=== PATIENT | male | born 1980 | race Caucasian/White ===

== ENCOUNTER 2019-09-15 18:55 | Emergency (ER) | payer OTHER, MEDICAID, SELFPAY ==
--- NOTE | 2019-09-15 20:36 | PC.NURSE ---
Late entry: @ 191 I was called out to registration. Jade informed me that a patient was upset and had left the department stating I'll just call 911 you people are just trying to keep me out. pt had left department. @ 1920 I was outside of the triage room in the registration area and patient returned, appearing very angry. I told him I would triage him in a moment, he went to leave and I told him that in order to be triaged I needed him in the department when I called him. He then turned toward me, pointed at me and yelled It's all on you. I stepped forward as there was a patient with me and he started to walk away and then stopped, took a step toward me and pointed at me yelling I'm going to fucking kill you. He appeared very threatening and I felt safety was at risk. He then turned and left the ER to outside. [employer] was called, statement given. Pt trespassed.
== END 2019-09-15 19:30 | disposition left against medical advice (07) ==
PROVIDERS: Emergency Provider Emergency Medicine

== ENCOUNTER → 2020-02-09 14:12 | Outpatient (CLI) | payer OTHER, MEDICAID, SELFPAY ==
--- NOTE | 2020-02-09 14:16 | DI.RAD.S_ITS ---
PROCEDURE: XR LUMBAR SPINE MIN 4V INDICATIONS: LBP x years with radiation BLE. Please include oblique views TECHNIQUE: 5 views of the lumbar spine were acquired. COMPARISON: Lumbar spine radiograph dated 02/15/16. FINDINGS: Bones: No fracture or focal osseous destruction. Straightening of the normal lordotic curvature. Multilevel degenerative endplate sclerosis and spurring. Diffuse facet arthropathy. Mild diffuse narrowing of the lumbar disc spaces. Soft tissues: Overlying bowel gas pattern is normal. No suspicious soft tissue calcifications. Oblique images: No pars defects. IMPRESSION: Mild multilevel lumbar spondylosis and facet arthropathy. No interval change. Dictated by: Valdez Zaragoza M.D. on 02/09/2020 at 15:52 Approved by: Valdez Zaragoza M.D. on 02/09/2020 at 15:54
--- NOTE | 2020-02-09 14:16 | DI.RAD.S_ITS ---
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 COMPARISON: None. FINDINGS: Bones: No fractures or dislocations. No suspicious bony lesions. Prominent spur seen at the posterior calcaneus. Mild 1st MTP joint degeneration. Soft tissues: No tibiotalar joint effusion. Achilles tendon appears normal. IMPRESSION: Prominent posterior calcaneal spur Dictated by: Valdez Zaragoza M.D. on 02/09/2020 at 15:55 Approved by: Valdez Zaragoza M.D. on 02/09/2020 at 15:57
--- NOTE | 2020-02-09 14:16 | DI.RAD.S_ITS ---
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 COMPARISON: None. FINDINGS: Bones: No fractures or dislocations. Ankle mortise is normally aligned. No suspicious bony lesions. Prominent posterior calcaneal spurring. No tibiotalar joint effusion. Achilles tendon appears normal. IMPRESSION: Prominent posterior calcaneal spur. Dictated by: Valdez Zaragoza M.D. on 02/09/2020 at 15:57 Approved by: Valdez Zaragoza M.D. on 02/09/2020 at 16:01
== END ==
PROVIDERS: Referring Provider Registered Nurse Diabetes Educator; Visit Provider Registered Nurse Diabetes Educator
DX: M54.5 Low back pain (principal); M47.816 Spondylosis without myelopathy or radiculopathy, lumbar region; M92.60 Juvenile osteochondrosis of tarsus, unspecified ankle; M77.31 Calcaneal spur, right foot
CPT/HCPCS: 72110; 73610; 73630

== ENCOUNTER → 2020-11-19 06:40 | Outpatient (CLI) | payer OTHER, MEDICAID, SELFPAY ==
--- NOTE | 2020-11-19 | DI.MRI.S_ITS ---
PROCEDURE: MR LUMBAR SPINE WO CON INDICATIONS: Worsening chronic low back pain/radiculopathy TECHNIQUE: Noncontrast sagittal T1 spin echo and T2 fast echo, sagittal STIR, axial T1 and T2 fast spin echo through the lumbar spine. In cases with scoliosis, additional coronal T2 fast spin echo may be performed. COMPARISON: [facility], CR, XR LUMBAR SPINE MIN 4V, 02/09/2020, 14:09. FINDINGS: Image quality: Excellent. Alignment and Curvature: 5 lumbar type vertebral bodies are present by plain film. There is loss of normal lumbar lordosis. Mild grade 1 retrolisthesis of L5 on S1. Bone Marrow: Marrow is of normal overall signal. No acute vertebral body compression fractures. Minimal reactive signal within the endplates adjacent to the L2-L3, L3-L4, L4-L5, and L5-S1 intervertebral discs. Spinal Cord: Conus medullaris terminates at the lower L1 level. Visualized cord demonstrates normal signal and size. Paraspinous Soft Tissues: No paravertebral masses. T12-L1: Normal appearance. L1-L2: Normal appearance. L2-L3: Mild disc height loss and desiccation. No significant canal, or foraminal stenosis. L3-L4: Mild disc height loss and desiccation. Mild diffuse disc bulge. Mild canal stenosis. No significant foraminal stenosis. L4-L5: Moderate disc height loss and desiccation. Mild diffuse disc bulge with superimposed central protrusion. Mild facet and ligamentum flavum hypertrophy. Mild canal stenosis. Mild bilateral foraminal stenosis. L5-S1: Moderate disc height loss and desiccation. Mild diffuse disc bulge with superimposed broad-based left posterolateral protrusion. Mild bilateral facet hypertrophy. Mild canal stenosis. Moderate left and mild right subarticular foraminal stenosis. Mild posterior deviation of the left S1 nerve root within the lateral recess. IMPRESSION: 1. Multilevel degenerative disc and facet disease, as well as ligamentum flavum hypertrophy and epidural lipomatosis. 2. Mild multilevel canal stenosis. 3. Multilevel foraminal stenosis, worst at L5-S1 on the left where there is moderate foraminal stenosis. 4. Mild posterior deviation of the left S1 nerve root at the L5-S1 disc space level. Recommend correlation with clinical symptoms to ascertain relevance of this finding. Dictated by: Lavelle Romero M.D. on 11/19/2020 at 11:00 Approved by: Lavelle Romero M.D. on 11/19/2020 at 11:02
== END ==
PROVIDERS: Referring Provider Nurse Practitioner Family; Visit Provider Nurse Practitioner Family
DX: M51.16 Intervertebral disc disorders with radiculopathy, lumbar region (principal); M51.17 Intervertebral disc disorders with radiculopathy, lumbosacral region; M48.061 Spinal stenosis, lumbar region without neurogenic claudication; M48.07 Spinal stenosis, lumbosacral region; E88.2 Lipomatosis, not elsewhere classified
CPT/HCPCS: 72148

== ENCOUNTER 2023-06-30 14:30 | Outpatient (RCR) | payer OTHER, MEDICAID, SELFPAY ==
--- NOTE | 2023-05-27 16:43 | PT.OIE ---
Current Diagnoses Radiculopathy, lumbar region (05/27/23) Past Medical History (Last Reviewed 02/08/20 @ 06:42 by KULWINDER Noriega) Rodrigo's deformity Low back pain Visit Care Team Role Provider Type KULWINDER Salazar Attending Provider Non-Staff Family Provider Primary Care Provider Referring Provider Specialty: Nursing Address: [facility], [address], [place], [address] Email: Physical Therapy Initial Evaluation PT-OP-A Visit Information Start: 05/27/23 15:22 Freq: Status: Active Protocol: Document 05/27/23 15:23 NM (Rec: 05/27/23 16:43 NM [id number]) Out-Patient Physical Therapy Visit Information Visit Information Visit Type Initial Evaluation Visit Start Time 14:30 Visit Stop Time 15:15 Total Visit Minutes 45 Evaluation Information Evaluation Date 05/27/23 PT-OP-B Current Condition Start: 05/27/23 15:22 Freq: Status: Active Protocol: Document 05/27/23 15:23 NM (Rec: 05/27/23 16:43 NM [id number]) Current Condition History of Current Condition Current Complaints low back and B leg pain, weakness, activity intolerance History of Current Condition Pt presents to clinic with chronic low back pain with radiation into BLE, RLE is worse than LLE. Pt reports that his back pain started in his 20's with a football injury to the spine, but the condition worsened about 5 years ago without any known WANDA. His symptoms are primarily burning in the low back and aching in his legs; he also has frequent numbness and tingling in both feet, R>L . Symptoms include B numbness and tingling, back pain, weakness, and decreased activity tolerance. 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 He has had instances where he feels like his legs give out on him. Pt also states that is R leg is shorter than his L leg, so he feels lopsided which he thinks affects his low back pain, too. Pt recently began using an inversion table, which is giving him significant relief. He is currently experiencing difficulty with bending, lifting >50#, sitting <15 min, walking extended distances, and standing for > 1 hr. Prior Treatments and Tests Pt had prior PT about 5 years ago for the same condition, which he said was helpful. He is hopeful that this round of PT will be successful as well. 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 Treatment Goals Patient/Caregiver Goals To decrease back pain Prior Functional Status Baseline Function- ADL's Independent Baseline Function- Mobility Independent Current Functional Impairments (Reported) Functional Limitations- ADL's difficulty with sitting, standing for extended periods of time Functional Limitations- Mobility/Gait Difficulty with walking extended distances (more than a grocery shopping trip) Functional Limitations- Work/School Difficulty bending, lifting for work, and positioning himself underneath the cars Personal Factors Other Personal Factors That May Effect He has a busy work schedule Therapy/Recovery and can only make 1 session/wk PT-OP-C Subjective Start: 05/27/23 15:22 Freq: Status: Active Protocol: Document 05/27/23 15:23 NM (Rec: 05/27/23 16:43 NM [id number]) Patient Questionnaires Oswestry Low Back Index Oswestry Score 19/50 Oswestry Impairment 1 to 19% Impaired (Score 1-19) OP-PT Pain Assessment Location Hips Pain Location Details R>L, located on the lateral portion of the hip Intensity 6 Scale Used Numeric (0 - 10) Description Aching,Chronic Frequency Frequent Pain Aggravating Factors Position,Exercise,Standing, Sitting,Walking,Bending, Lifting,Coughing Other Pain Alleviating Factors Inversion table + back brace Lumbar Spine Pain Location Details near L4-S1 Intensity 6 Scale Used Numeric (0 - 10) Description Burning,Chronic,Radiating,With Movement Frequency Constant Pain Duration lasts hours Radiating Location to BLE, RLE is more effected than LLE. Radiates to the R hip, B feet (R>L) Pain Aggravating Factors Position,Activity,Standing, Sitting,Walking,Bending, Lifting,Coughing Pain Alleviating Factors Medication,Lying Supine, Elevation Other Pain Alleviating Factors Inversion table followed by a back brace for support Home Pain Medication Use Pain Medications Used Yes Home Pain Medication Frequency Frequent use of ibuprofen Pain Behaviors Pain Behaviors Guarding,Restlessness PT-OP-D Balance Start: 05/27/23 15:22 Freq: Status: Active Protocol: Document 05/27/23 15:23 NM (Rec: 05/27/23 16:43 NM [id number]) OP-PT Balance Assessment Sitting Balance Static Sitting Balance Ability Normal Dynamic Sitting Balance Ability Normal Standing Balance Static Standing Balance Ability Fair Dynamic Standing Balance Ability Fair Hawthorne Fall Scale Copyright Permission PT-OP-F Manual Assessment Start: 05/27/23 15:22 Freq: Status: Active Protocol: Document 05/27/23 15:23 NM (Rec: 05/27/23 16:43 NM [id number]) Manual Assessments Soft Tissue Assessment Soft Tissue Mobility Assessment Exhibits muscle guarding along lumbar paraspinals. Some soft tissue tightness and tenderness along the spinous processes near L4-S1 Joint Mobility Assessment Joint Mobility Assessment PA spring testing reveals hypomobility at L4-L5 spinous processes; pt reports symptom decrease with springing. PIVM flexion and sidebending performed, exhibits hypomobility of spinous processes ~L4-L5. B hip joint motion not provocatie except during B hip IR PT-OP-G Mobility & Gait Start: 05/27/23 15:22 Freq: Status: Active Protocol: Document 05/27/23 15:23 NM (Rec: 05/27/23 16:43 NM [id number]) OP Gait Assessment Gait Gait Assistance Required: Independent Distance (Feet) 500 Gait Deviations General Gait Pattern Antalgic,Flexed Trunk Factors Limiting Gait Function Factors Limiting Gait Function Decreased Activity Tolerance, Limited Range of Motion,Pain PT-OP-H Neuro Start: 05/27/23 15:22 Freq: Status: Active Protocol: Document 05/27/23 15:23 NM (Rec: 05/27/23 16:43 NM [id number]) Sensation Evaluation Gross Sensation Gross Sensation Left LE Impaired,Right LE Impaired,Trunk Impaired Sensation Description Paresthesia,Numbness,Tingling, Burning Dermatome Impairments T10,T11,T12,L1,L2,L3,L4,L5,S1 Location Details Left Lower Extremity Light Touch Impaired Right Lower Extremity Light Touch Impaired Comments Summary Comments Decreased sensation to light touch in BLE, R>L, primarily along dermatomes L3-L5 PT-OP-J Posture/Palpation/Skin Start: 05/27/23 15:22 Freq: Status: Active Protocol: Document 05/27/23 15:23 NM (Rec: 05/27/23 16:43 NM [id number]) Posture Evaluation Position Standing Evaluation View all 3 Head/C-Spine Posture Flexed L-Spine Posture Neutral Shoulder Posture (L) Rounded,(R) Rounded Pelvis Posture Anteriorly Tilted Hip Posture (L) Externally Rotated,(R) Externally Rotated PT-OP-K Range of Motion Start: 05/27/23 15:22 Freq: Status: Active Protocol: Document 05/27/23 15:23 NM (Rec: 05/27/23 16:43 NM [id number]) Lumbar Spine Range of Motion Lumbar Spine Active Degrees Testing Position Standing Flexion 50 Extension 20 Rotation Left 3 Rotation Right 3 Lateral Flexion Left 10 Lateral Flexion Right 10 ROM Limitations Pain Comments Limited by pain during all motions, ext> flex. Lateral flexion in each direction is most provocative. Hip Goniometric Range of Motion Hip Left Comments Did not get to take measurements during eval due to time constraints. Will assess next session. Pt did demo decreased hip IR (greater ROM than R hip), which also provoked low back symptoms. LLE length: 86 cm (ASIS to medial malleolus) Right Comments Did not get to take measurements during eval due to time constraints. Will assess next session. Pt did demo decreased hip IR, which also provoked low back symptoms. RLE length: 84 cm (ASIS to medial malleolus) PT-OP-L Special Tests Start: 05/27/23 15:22 Freq: Status: Active Protocol: Document 05/27/23 15:23 NM (Rec: 05/27/23 16:43 NM [id number]) Special Tests Lumbar Spine Special Tests Slump Test Results negative Comments no changes in symptoms but does report a stretching feeling in hamstrings Compression Test Results positive bilaterally Comments Ext/SB/Rot provoked symptoms when performed on ea side PT-OP-M Strength Start: 05/27/23 15:22 Freq: Status: Active Protocol: Document 05/27/23 15:23 NM (Rec: 05/27/23 16:43 NM [id number]) Trunk Strength Trunk Manual Muscle Testing Testing Position supine, standing, prone Flexion 4+ Good+ Rotation Left 4+ Good+ Rotation Right 4+ Good+ Lateral Flexion Left 4+ Good+ Lateral Flexion Right 4+ Good+ Comments Extension is provocative of symptoms, therefore plank not tested. Hip Strength Hip Manual Muscle Testing Left Flexion (L2) 4+ Good+ Extension (S1) 4 Good Abduction 4+ Good+ External Rotation 4+ Good+ Internal Rotation 4+ Good+ Comments No pain Right Flexion (L2) 4+ Good+ Extension (S1) 4 Good Abduction 4 Good External Rotation 4+ Good+ Internal Rotation 4+ Good+ Comments No pain PT-OP-Q Treatments Start: 05/27/23 15:22 Freq: Status: Active Protocol: Document 05/27/23 15:23 NM (Rec: 05/27/23 16:43 NM [id number]) Therapeutic Exercises Supine Exercises 90/90 Spinal Decompression Supine Exercise Name HEP Side bilateral Equipment Used bolster under knees Reps/Minutes 5' Comments pt reports relief of symptoms PT-OP-T Assessment and Plan Start: 05/27/23 15:22 Freq: Status: Active Protocol: Document 05/27/23 15:23 NM (Rec: 05/27/23 16:43 NM [id number]) Physical Therapy Assessment Rehab Potential Rehabilitation Potential Good Evaluation Complexity Number of Personal Factors/Comorbidities 3 or More Number of Body Systems Impaired 1-2 Clinical Presentation at Evaluation Stable Impairments Impairments Activity Tolerance,Balance, Functional Activities, Functional Mobility,Gait,Pain, Posture,ROM,Sensation,Soft Tissue Mobility,Strength Goals Four Impairment function, pain Impairment Pt reports he is unable to squat due to pain and symptom provocation Short Term Goal (STG) Pt will be able to squat at least 5 times with low back pain of 4/10 or less without compensations in order to demonstrate improved activity tolerance, symptom management, and ROM. STG Duration 4 weeks Tattoo Technician Goal (LTG) Pt will be able to squat for at least 30 seconds with low back pain of 4/10 or less without compensations in order to demonstrate improved activity tolerance, symptom management, and ROM. LTG Duration 8 weeks Three Impairment function, pain Impairment Oswestry score: 19/50 Short Term Goal (STG) Pt will improve Oswestry score by at least 4 points in order to demonstrate improved activity tolerance and pain management strategies. STG Duration 4 weeks Tattoo Technician Goal (LTG) Pt will improve Oswestry score by at least 9 points (MCID) in order to demonstrates improved activity tolerance, pain management strategies, and quality of life. LTG Duration 8 weeks Two Impairment strength Impairment Pt unable to perform a standard or modified plank due to pain during back extension Short Term Goal (STG) Pt will be able to perform at least a modified plank for at least 15 seconds in order to demonstrate improved core strength, extension ROM, and activity tolerance. STG Duration 4 weeks Tattoo Technician Goal (LTG) Pt will be able to perform at least a modified plank for at least 45 seconds in order to demonstrate improved core strength, extension ROM, and activity tolerance. LTG Duration 8 weeks One Impairment ROM Impairment Lateral flexion (10 deg B) and extension (20deg) ROM limited Short Term Goal (STG) Pt will improve trunk lateral flexion and extension ROM by at least 5 degrees in order to show improved motion. STG Duration 4 weeks Longterm Goal (LTG) Pt will improve lateral flexion and extension ROM by at least 5 degrees with pain of 2 or less in order to show improvements in motion, activity tolerance, and pain management. LTG Duration 8 weeks Assessment Summary Assessment Pt is a 42 y.o. male presenting to the clinic with chronic low back pain with B radicular symptoms down to the feet, RLE > LLE. He has a hx of low back pain but no known mechanism of injury. Symptoms are primarily a burning low back pain, numbness and tingling in B feet, and an aching feeling in BLE. Pt is symptomatic with extended standing and walking, during bending and lifting >50#, and squatting. Pt presents with limitations in trunk ROM ( especially lateral flexion and extension) and is symptomatic during flexion and extension, and combined motions. Hip motion is largely asymptomatic with the exception of hip IR, but will assess actual ROM in next session due to time constraints; hip strength is good overall with some hip abduction weakness. Trunk strength is good but pt would benefit from core strengthening and education regarding core activation for spine protection during lifting. Tests involving spinal compression and neural tension provoke symptoms, and the symptoms are reduced with spinal decompression. HEP provided: supine 90/90 hip/ knees using a bolster to unload spine. Pt does have decreased sensation to light touch in the L3-L5 dermatomes. Pt is also concerned about a possible leg length discrepancy that may impact his low back pain. Upon measurement, RLE is 2 cm less than the LLE; discussed the possibility of a future referral for foot orthotics. Impairments include decreased hip and core strength, gait disturbances, decreased sensation, decreased endurance , and decreased ability to participate in social and work activities. Pt is a good candidate for skilled PT to address the above impairments and to promote pt safety, reduce fall risk, improve activity tolerance, and quality of life. Physical Therapy Plan Frequency and Duration Frequency of Treatment 1x/Week Duration of treatment (weeks) 8 Plan of Care Start Date 05/27/23 Plan of Care End Date 07/22/23 Therapeutic Interventions Therapeutic Interventions Balance Training,Gait Training ,Home Exercise Program,Joint Mobilizations,Manual Therapy, Neuromuscular Re-education, Orthotic/Prosthetic Management ,Patient/Caregiver Education, Sensory Integration,Soft Tissue Mobilization, Therapeutic Activities, Therapeutic Exercises Modalities Biofeedback,Cold Pack/Ice Massage,Electric Stimulation, Hot Packs,Iontophoresis, Traction- Mechanical, Ultrasound Other Therapeutic Interventions Manual traction of lumbar spine and hips Other Referrals/Consults Referrals/Consults Recommended Discussed possibility of custom orthotics with pt regarding potential leg length discrepancy. Depending on pt progress and preference, will refer to appropriate provider. Next Visit Focus/Plan Next Note Type Treatment Note Next Visit Plan Core strengthening, flexion- based spinal activities, manual traction, spinal decompression
--- NOTE | 2023-06-04 11:23 | PT.OTN ---
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 Pt reports that his back pain started in his 20's with a football injury to the spine, but the condition worsened about 5 years ago without any known WANDA. His symptoms are primarily burning in the low back and aching in his legs; he also has frequent numbness and tingling in both feet, R>L . Symptoms include B numbness and tingling, back pain, weakness, and decreased activity tolerance. 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 He has had instances where he feels like his legs give out on him. Pt also states that is R leg is shorter than his L leg, so he feels lopsided which he thinks affects his low back pain, too. Pt recently began using an inversion table, which is giving him significant relief. He is currently experiencing difficulty with bending, lifting >50#, sitting <15 min, walking extended distances, and standing for > 1 hr. Prior Treatments and Tests Pt had prior PT about 5 years ago for the same condition, which he said was helpful. He is hopeful that this round of PT will be successful as well. 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 Treatment Goals Patient/Caregiver Goals To decrease back pain Prior Functional Status Baseline Function- ADL's Independent Baseline Function- Mobility Independent Current Functional Impairments (Reported) Functional Limitations- ADL's difficulty with sitting, standing for extended periods of time Functional Limitations- Mobility/Gait Difficulty with walking extended distances (more than a grocery shopping trip) Functional Limitations- Work/School Difficulty bending, lifting for work, and positioning himself underneath the cars Personal Factors Other Personal Factors That May Effect He has a busy work schedule Therapy/Recovery and can only make 1 session/wk PT-OP-C Subjective Start: 05/27/23 15:22 Freq: Status: Active Protocol: Document 06/04/23 10:35 SP (Rec: 06/04/23 11:41 SP [id number]) OP-PT Subjective Patient Comments Patient Comments Pt reports R LB today and into B LEs. States inversion table has been really helping decompress hips and LS discs all way to upper back almost 3 /4 decline and tries to relax and breath. He reports PT-OP-D Balance Start: 05/27/23 15:22 Freq: Status: Active Protocol: Document 05/27/23 15:23 NM (Rec: 05/27/23 16:43 NM [id number]) OP-PT Balance Assessment Sitting Balance Static Sitting Balance Ability Normal Dynamic Sitting Balance Ability Normal Standing Balance Static Standing Balance Ability Fair Dynamic Standing Balance Ability Fair Hawthorne Fall Scale Copyright Permission PT-OP-F Manual Assessment Start: 05/27/23 15:22 Freq: Status: Active Protocol: Document 05/27/23 15:23 NM (Rec: 05/27/23 16:43 NM [id number]) Manual Assessments Soft Tissue Assessment Soft Tissue Mobility Assessment Exhibits muscle guarding along lumbar paraspinals. Some soft tissue tightness and tenderness along the spinous processes near L4-S1 Joint Mobility Assessment Joint Mobility Assessment PA spring testing reveals hypomobility at L4-L5 spinous processes; pt reports symptom decrease with springing. PIVM flexion and sidebending performed, exhibits hypomobility of spinous processes ~L4-L5. B hip joint motion not provocatie except during B hip IR PT-OP-G Mobility & Gait Start: 05/27/23 15:22 Freq: Status: Active Protocol: Document 05/27/23 15:23 NM (Rec: 05/27/23 16:43 NM [id number]) OP Gait Assessment Gait Gait Assistance Required: Independent Distance (Feet) 500 Gait Deviations General Gait Pattern Antalgic,Flexed Trunk Factors Limiting Gait Function Factors Limiting Gait Function Decreased Activity Tolerance, Limited Range of Motion,Pain PT-OP-H Neuro Start: 05/27/23 15:22 Freq: Status: Active Protocol: Document 05/27/23 15:23 NM (Rec: 05/27/23 16:43 NM [id number]) Sensation Evaluation Gross Sensation Gross Sensation Left LE Impaired,Right LE Impaired,Trunk Impaired Sensation Description Paresthesia,Numbness,Tingling, Burning Dermatome Impairments T10,T11,T12,L1,L2,L3,L4,L5,S1 Location Details Left Lower Extremity Light Touch Impaired Right Lower Extremity Light Touch Impaired Comments Summary Comments Decreased sensation to light touch in BLE, R>L, primarily along dermatomes L3-L5 PT-OP-J Posture/Palpation/Skin Start: 05/27/23 15:22 Freq: Status: Active Protocol: Document 05/27/23 15:23 NM (Rec: 05/27/23 16:43 NM [id number]) Posture Evaluation Position Standing Evaluation View all 3 Head/C-Spine Posture Flexed L-Spine Posture Neutral Shoulder Posture (L) Rounded,(R) Rounded Pelvis Posture Anteriorly Tilted Hip Posture (L) Externally Rotated,(R) Externally Rotated PT-OP-K Range of Motion Start: 05/27/23 15:22 Freq: Status: Active Protocol: Document 05/27/23 15:23 NM (Rec: 05/27/23 16:43 NM [id number]) Lumbar Spine Range of Motion Lumbar Spine Active Degrees Testing Position Standing Flexion 50 Extension 20 Rotation Left 3 Rotation Right 3 Lateral Flexion Left 10 Lateral Flexion Right 10 ROM Limitations Pain Comments Limited by pain during all motions, ext> flex. Lateral flexion in each direction is most provocative. Hip Goniometric Range of Motion Hip Left Comments Did not get to take measurements during eval due to time constraints. Will assess next session. Pt did demo decreased hip IR (greater ROM than R hip), which also provoked low back symptoms. LLE length: 86 cm (ASIS to medial malleolus) Right Comments Did not get to take measurements during eval due to time constraints. Will assess next session. Pt did demo decreased hip IR, which also provoked low back symptoms. RLE length: 84 cm (ASIS to medial malleolus) PT-OP-L Special Tests Start: 05/27/23 15:22 Freq: Status: Active Protocol: Document 05/27/23 15:23 NM (Rec: 05/27/23 16:43 NM [id number]) Special Tests Lumbar Spine Special Tests Slump Test Results negative Comments no changes in symptoms but does report a stretching feeling in hamstrings Compression Test Results positive bilaterally Comments Ext/SB/Rot provoked symptoms when performed on ea side PT-OP-M Strength Start: 05/27/23 15:22 Freq: Status: Active Protocol: Document 05/27/23 15:23 NM (Rec: 05/27/23 16:43 NM [id number]) Trunk Strength Trunk Manual Muscle Testing Testing Position supine, standing, prone Flexion 4+ Good+ Rotation Left 4+ Good+ Rotation Right 4+ Good+ Lateral Flexion Left 4+ Good+ Lateral Flexion Right 4+ Good+ Comments Extension is provocative of symptoms, therefore plank not tested. Hip Strength Hip Manual Muscle Testing Left Flexion (L2) 4+ Good+ Extension (S1) 4 Good Abduction 4+ Good+ External Rotation 4+ Good+ Internal Rotation 4+ Good+ Comments No pain Right Flexion (L2) 4+ Good+ Extension (S1) 4 Good Abduction 4 Good External Rotation 4+ Good+ Internal Rotation 4+ Good+ Comments No pain PT-OP-Q Treatments Start: 05/27/23 15:22 Freq: Status: Active Protocol: Document 06/04/23 10:35 SP (Rec: 06/04/23 11:41 SP [id number]) Therapeutic Exercises Supine Exercises TA training Supine Exercise Name draw in, PPT little stronger Comments Mod cues and tactile LS feedback- 30-50% pre LE HEP added Fig 4 Comments pain SI R- hold 06/04 stretches Supine Exercise Name added to HEP: piriformis (hip ER) Side bilateral Equipment Used foot over opp bent knee Reps/Minutes 30SH Comments good feedback post hip stretch front hips ok LTR Supine Exercise Name in PT Resistance AROM Equipment Used 65cm tball Reps/Minutes x5 reps Comments cued slow, initial R anterior hip pinch to R LTR but then fine segmental bridge Supine Exercise Name added to HEP: sacrum & 1 vertebra time lift/lower Resistance AROM Reps/Minutes x5 reps Comments initial wobbly pelvis, improves with reps knee fall out Supine Exercise Name added to HEP: individual LE Side bilateral Reps/Minutes 3 reps each side then alternating 3 sets Comments Mod/Max vcs, slow pacing active TA maintain- opp LE stationary 90/90 Spinal Decompression Supine Exercise Name HEP Side bilateral Equipment Used over 65cm Tball Reps/Minutes 3 min Comments good hip stretch reported, cued breath Sitting Exercises Piriformis stretch Sitting Exercise Name added for seated at work Reps/Minutes 30 Comments cued hold foot over opp knee cradle toward opp shld painfree range- good st Other Exercises self STMs Other Exercise Name discussed gave HO: ES, glut Equipment Used ball wall self massage: tennis /racquetball Reps/Minutes 10-30 sec gentle beneficial massage Comments recheck next tx. Manual Therapy Treatment Soft Tissue Mobilization Hips Body Location B piriformis, glut med Mobilization Type Strumming,Sustained Pressure, Other Intensity/Depth mod Body Position prone over pilllows Comments manual and MWM hip IR/ ER AROM back Body Location B QL, ES, paraspinals Mobilization Type Rolling,Sustained Pressure, Other Intensity/Depth Moderate Body Position prone over pillows Comments manual STMs and MWM hip IR/ ER AROM Joint Mobilizations LS Joint L4-5 Direction PA Grade II Body Position Prone Reps/Duration x6 reps Comments with exhale- good feedback response, relaxing Self-Care/Home Management Treatment Education Other Education Ed balance flexibility, core support and upcoming appts 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 PT-OP-T Assessment and Plan Start: 05/27/23 15:22 Freq: Status: Active Protocol: Document 06/04/23 10:35 SP (Rec: 06/04/23 11:41 SP [id number]) Physical Therapy Assessment Goals Four Impairment function, pain Impairment Pt reports he is unable to squat due to pain and symptom provocation Short Term Goal (STG) Pt will be able to squat at least 5 times with low back pain of 4/10 or less without compensations in order to demonstrate improved activity tolerance, symptom management, and ROM. STG Duration 4 weeks Mcfp Goal (LTG) Pt will be able to squat for at least 30 seconds with low back pain of 4/10 or less without compensations in order to demonstrate improved activity tolerance, symptom management, and ROM. LTG Duration 8 weeks Three Impairment function, pain Impairment Oswestry score: 19/50 Short Term Goal (STG) Pt will improve Oswestry score by at least 4 points in order to demonstrate improved activity tolerance and pain management strategies. STG Duration 4 weeks Mcfp Goal (LTG) Pt will improve Oswestry score by at least 9 points (MCID) in order to demonstrates improved activity tolerance, pain management strategies, and quality of life. LTG Duration 8 weeks Two Impairment strength Impairment Pt unable to perform a standard or modified plank due to pain during back extension Short Term Goal (STG) Pt will be able to perform at least a modified plank for at least 15 seconds in order to demonstrate improved core strength, extension ROM, and activity tolerance. STG Duration 4 weeks Mcfp Goal (LTG) Pt will be able to perform at least a modified plank for at least 45 seconds in order to demonstrate improved core strength, extension ROM, and activity tolerance. LTG Duration 8 weeks One Impairment ROM Impairment Lateral flexion (10 deg B) and extension (20deg) ROM limited Short Term Goal (STG) Pt will improve trunk lateral flexion and extension ROM by at least 5 degrees in order to show improved motion. STG Duration 4 weeks Mcfp Goal (LTG) Pt will improve lateral flexion and extension ROM by at least 5 degrees with pain of 2 or less in order to show improvements in motion, activity tolerance, and pain management. LTG Duration 8 weeks Assessment Summary Assessment Pt good feedback response to manual, verbal understanding of self application ball wall. Max cues this tx, pt very sleepy, didn't sleep well last night had him count out loud, better core fac with reps bridge, KFO and tolerance stretching added to HEP. Physical Therapy Plan Frequency and Duration Frequency of Treatment 1x/Week Duration of treatment (weeks) 8 Plan of Care Start Date 05/27/23 Plan of Care End Date 07/22/23 Therapeutic Interventions Therapeutic Interventions Balance Training,Gait Training ,Home Exercise Program,Joint Mobilizations,Manual Therapy, Neuromuscular Re-education, Orthotic/Prosthetic Management ,Patient/Caregiver Education, Sensory Integration,Soft Tissue Mobilization, Therapeutic Activities, Therapeutic Exercises Modalities Biofeedback,Cold Pack/Ice Massage,Electric Stimulation, Hot Packs,Iontophoresis, Traction- Mechanical, Ultrasound Other Therapeutic Interventions Manual traction of lumbar spine and hips Other Referrals/Consults Referrals/Consults Recommended Discussed possibility of custom orthotics with pt regarding potential leg length discrepancy. Depending on pt progress and preference, will refer to appropriate provider. Next Visit Focus/Plan Next Note Type Treatment Note Next Visit Plan Check HEP, possible pelvic alignment. revisit self STMs if needed. Add LE sciatic neural glide. POC: Core strengthening, flexion-based spinal activities, manual traction, spinal decompression, future bird dog, bug, body mechanics work related, STS reach OH and squat.
--- NOTE | 2023-06-09 16:07 | PT.OTN ---
Current Diagnoses Radiculopathy, lumbar region (06/09/23) Physical Therapy Treatment Note PT-OP-A Visit Information Start: 05/27/23 15:22 Freq: Status: Active Protocol: Document 06/09/23 15:46 NM (Rec: 06/09/23 16:05 NM [id number]) Out-Patient Physical Therapy Visit Information Visit Information Visit Type Treatment Note Visit Start Time 13:47 Visit Stop Time 14:30 Total Visit Minutes 43 Visit Number 3 Number of NEWS INTERN Visits 1 Evaluation Information Evaluation Date 05/27/23 PT-OP-B Current Condition Start: 05/27/23 15:22 Freq: Status: Active Protocol: Document 05/27/23 15:23 NM (Rec: 05/27/23 16:43 NM [id number]) Current Condition History of Current Condition Current Complaints low back and B leg pain, weakness, activity intolerance History of Current Condition Pt presents to clinic with chronic low back pain with radiation into BLE, RLE is worse than LLE. Pt reports that his back pain started in his 20's with a football injury to the spine, but the condition worsened about 5 years ago without any known WANDA. His symptoms are primarily burning in the low back and aching in his legs; he also has frequent numbness and tingling in both feet, R>L . Symptoms include B numbness and tingling, back pain, weakness, and decreased activity tolerance. 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 He has had instances where he feels like his legs give out on him. Pt also states that is R leg is shorter than his L leg, so he feels lopsided which he thinks affects his low back pain, too. Pt recently began using an inversion table, which is giving him significant relief. He is currently experiencing difficulty with bending, lifting >50#, sitting <15 min, walking extended distances, and standing for > 1 hr. Prior Treatments and Tests Pt had prior PT about 5 years ago for the same condition, which he said was helpful. He is hopeful that this round of PT will be successful as well. 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 Treatment Goals Patient/Caregiver Goals To decrease back pain Prior Functional Status Baseline Function- ADL's Independent Baseline Function- Mobility Independent Current Functional Impairments (Reported) Functional Limitations- ADL's difficulty with sitting, standing for extended periods of time Functional Limitations- Mobility/Gait Difficulty with walking extended distances (more than a grocery shopping trip) Functional Limitations- Work/School Difficulty bending, lifting for work, and positioning himself underneath the cars Personal Factors Other Personal Factors That May Effect He has a busy work schedule Therapy/Recovery and can only make 1 session/wk PT-OP-C Subjective Start: 05/27/23 15:22 Freq: Status: Active Protocol: Document 06/09/23 15:46 NM (Rec: 06/09/23 16:05 NM [id number]) OP-PT Subjective Patient Comments Patient Comments Pt reports that he has 0/10 low back pain today. He has been compliant with his HEP. He states that the inversion table is helpful for his decreasing his pain, and he thinks PT is helping him get stronger. PT-OP-D Balance Start: 05/27/23 15:22 Freq: Status: Active Protocol: Document 05/27/23 15:23 NM (Rec: 05/27/23 16:43 NM [id number]) OP-PT Balance Assessment Sitting Balance Static Sitting Balance Ability Normal Dynamic Sitting Balance Ability Normal Standing Balance Static Standing Balance Ability Fair Dynamic Standing Balance Ability Fair Hawthorne Fall Scale Copyright Permission PT-OP-F Manual Assessment Start: 05/27/23 15:22 Freq: Status: Active Protocol: Document 05/27/23 15:23 NM (Rec: 05/27/23 16:43 NM [id number]) Manual Assessments Soft Tissue Assessment Soft Tissue Mobility Assessment Exhibits muscle guarding along lumbar paraspinals. Some soft tissue tightness and tenderness along the spinous processes near L4-S1 Joint Mobility Assessment Joint Mobility Assessment PA spring testing reveals hypomobility at L4-L5 spinous processes; pt reports symptom decrease with springing. PIVM flexion and sidebending performed, exhibits hypomobility of spinous processes ~L4-L5. B hip joint motion not provocatie except during B hip IR PT-OP-G Mobility & Gait Start: 05/27/23 15:22 Freq: Status: Active Protocol: Document 05/27/23 15:23 NM (Rec: 05/27/23 16:43 NM [id number]) OP Gait Assessment Gait Gait Assistance Required: Independent Distance (Feet) 500 Gait Deviations General Gait Pattern Antalgic,Flexed Trunk Factors Limiting Gait Function Factors Limiting Gait Function Decreased Activity Tolerance, Limited Range of Motion,Pain PT-OP-H Neuro Start: 05/27/23 15:22 Freq: Status: Active Protocol: Document 05/27/23 15:23 NM (Rec: 05/27/23 16:43 NM [id number]) Sensation Evaluation Gross Sensation Gross Sensation Left LE Impaired,Right LE Impaired,Trunk Impaired Sensation Description Paresthesia,Numbness,Tingling, Burning Dermatome Impairments T10,T11,T12,L1,L2,L3,L4,L5,S1 Location Details Left Lower Extremity Light Touch Impaired Right Lower Extremity Light Touch Impaired Comments Summary Comments Decreased sensation to light touch in BLE, R>L, primarily along dermatomes L3-L5 PT-OP-J Posture/Palpation/Skin Start: 05/27/23 15:22 Freq: Status: Active Protocol: Document 05/27/23 15:23 NM (Rec: 05/27/23 16:43 NM [id number]) Posture Evaluation Position Standing Evaluation View all 3 Head/C-Spine Posture Flexed L-Spine Posture Neutral Shoulder Posture (L) Rounded,(R) Rounded Pelvis Posture Anteriorly Tilted Hip Posture (L) Externally Rotated,(R) Externally Rotated PT-OP-K Range of Motion Start: 05/27/23 15:22 Freq: Status: Active Protocol: Document 06/09/23 16:05 NM (Rec: 06/09/23 16:07 NM [id number]) Hip Goniometric Range of Motion Hip Left Testing Position supine and sitting Flexion w/Knee Flexed 95 Abduction 20 Internal Rotation 20 External Rotation 30 Right Testing Position supine and sitting Flexion w/Knee Flexed 90 Abduction 20 Internal Rotation 25 External Rotation 20 PT-OP-L Special Tests Start: 05/27/23 15:22 Freq: Status: Active Protocol: Document 05/27/23 15:23 NM (Rec: 05/27/23 16:43 NM [id number]) Special Tests Lumbar Spine Special Tests Slump Test Results negative Comments no changes in symptoms but does report a stretching feeling in hamstrings Compression Test Results positive bilaterally Comments Ext/SB/Rot provoked symptoms when performed on ea side PT-OP-M Strength Start: 05/27/23 15:22 Freq: Status: Active Protocol: Document 05/27/23 15:23 NM (Rec: 05/27/23 16:43 NM [id number]) Trunk Strength Trunk Manual Muscle Testing Testing Position supine, standing, prone Flexion 4+ Good+ Rotation Left 4+ Good+ Rotation Right 4+ Good+ Lateral Flexion Left 4+ Good+ Lateral Flexion Right 4+ Good+ Comments Extension is provocative of symptoms, therefore plank not tested. Hip Strength Hip Manual Muscle Testing Left Flexion (L2) 4+ Good+ Extension (S1) 4 Good Abduction 4+ Good+ External Rotation 4+ Good+ Internal Rotation 4+ Good+ Comments No pain Right Flexion (L2) 4+ Good+ Extension (S1) 4 Good Abduction 4 Good External Rotation 4+ Good+ Internal Rotation 4+ Good+ Comments No pain PT-OP-Q Treatments Start: 05/27/23 15:22 Freq: Status: Active Protocol: Document 06/09/23 15:46 NM (Rec: 06/09/23 16:05 NM [id number]) Therapeutic Exercises Supine Exercises Knee to chest stretch Side bilateral Equipment Used b[place] ball for BLE support Reps/Minutes 2x60 Comments reports low back relief Lat pull down Supine Exercise Name + TA activation Side bilateral Resistance blue tb (lvl 4) Equipment Used knees in + TA activation Reps/Minutes 2x15 Comments cues for TA activation, tolerates well, no pain Dying bug Supine Exercise Name + ppt Side bilateral Reps/Minutes 2x10 ea Comments cues to maintain TA activation + ppt TA activation + B heel lift Supine Exercise Name for TA activation + lower abdominal strengthening Side bilateral Reps/Minutes 2x12 Comments Pt lifting heels off mat while maintain TA contraction TA training Supine Exercise Name + ppt Side bilateral Reps/Minutes 1. x10 Comments review LTR Supine Exercise Name in hooklying Side bilateral Resistance AROM Reps/Minutes 2x30 Comments cued for slow rotation, increase ROM with reps segmental bridge Supine Exercise Name progressed to full AROM bridge Side bilateral Reps/Minutes 10x2x3 Comments full ROM, no pain; cues for glute activation 90/90 Spinal Decompression Side bilateral Equipment Used over 65cm Tball Reps/Minutes 3 min Comments good hip stretch reported, cued breath Sitting Exercises Piriformis stretch Side bilateral Reps/Minutes 2x30 Comments good tolerance, no back pain Manual Therapy Treatment Soft Tissue Mobilization back Body Location B QL, ES, paraspinals Mobilization Type Rolling,Strumming,Sustained Pressure Intensity/Depth Moderate Body Position Prone Comments manual STM Joint Mobilizations LS Joint L1-L5 Direction P-A Grade III Body Position Prone Reps/Duration 4x30 Comments Performed while pt exhaling. Started with grade II P-A then progressed to grade III for L spine segmental mobility. Pt reports relief with mobilization Nerve Glides Sciatic n glide Body Position Sitting Reps/Duration 1x10 reps ea side Comments Cues for correct execution; added to HEP as tolerated. Pt reports improvement in symptoms in LLE/low back. PT-OP-T Assessment and Plan Start: 05/27/23 15:22 Freq: Status: Active Protocol: Document 06/09/23 15:46 NM (Rec: 06/09/23 16:05 NM [id number]) Physical Therapy Assessment Goals Four Impairment function, pain Impairment Pt reports he is unable to squat due to pain and symptom provocation Short Term Goal (STG) Pt will be able to squat at least 5 times with low back pain of 4/10 or less without compensations in order to demonstrate improved activity tolerance, symptom management, and ROM. STG Duration 4 weeks Prison Goal (LTG) Pt will be able to squat for at least 30 seconds with low back pain of 4/10 or less without compensations in order to demonstrate improved activity tolerance, symptom management, and ROM. LTG Duration 8 weeks Three Impairment function, pain Impairment Oswestry score: 19/50 Short Term Goal (STG) Pt will improve Oswestry score by at least 4 points in order to demonstrate improved activity tolerance and pain management strategies. STG Duration 4 weeks Prison Goal (LTG) Pt will improve Oswestry score by at least 9 points (MCID) in order to demonstrates improved activity tolerance, pain management strategies, and quality of life. LTG Duration 8 weeks Two Impairment strength Impairment Pt unable to perform a standard or modified plank due to pain during back extension Short Term Goal (STG) Pt will be able to perform at least a modified plank for at least 15 seconds in order to demonstrate improved core strength, extension ROM, and activity tolerance. STG Duration 4 weeks Physical Therapist Aide Goal (LTG) Pt will be able to perform at least a modified plank for at least 45 seconds in order to demonstrate improved core strength, extension ROM, and activity tolerance. LTG Duration 8 weeks One Impairment ROM Impairment Lateral flexion (10 deg B) and extension (20deg) ROM limited Short Term Goal (STG) Pt will improve trunk lateral flexion and extension ROM by at least 5 degrees in order to show improved motion. STG Duration 4 weeks Prison Goal (LTG) Pt will improve lateral flexion and extension ROM by at least 5 degrees with pain of 2 or less in order to show improvements in motion, activity tolerance, and pain management. LTG Duration 8 weeks Assessment Summary Assessment Pt tolerated treatment well. He demos good responses to flexion-biased exercises, and was able to perform all exercises without any increased pain or discomfort in low back. Tmt focus today on core strengthening, hip and lumbar spine stretching. Will progress as tolerated next session. Pt demos fair TA activation and is able to stabilize well for more progressive strengthening. Sciatic n glide initiated today with pt reporting symptom relief in LLE. Manual tmt focus on improving soft tissue mobility and segmental lumbar spine mobility for better overall spinal mechanics; pt reports improvement in non-pain symptoms. HEP updated to include sciatic nerve glide, bridge, lat pull downs, and dying bug. Pt would benefit from skilled PT to address deficits in trunk/core ROM, strength, and activity tolerance to return to PLOF. Physical Therapy Plan Frequency and Duration Frequency of Treatment 1x/Week Duration of treatment (weeks) 8 Plan of Care Start Date 05/27/23 Plan of Care End Date 07/22/23 Therapeutic Interventions Therapeutic Interventions Balance Training,Gait Training ,Home Exercise Program,Joint Mobilizations,Manual Therapy, Neuromuscular Re-education, Orthotic/Prosthetic Management ,Patient/Caregiver Education, Sensory Integration,Soft Tissue Mobilization, Therapeutic Activities, Therapeutic Exercises Modalities Biofeedback,Cold Pack/Ice Massage,Electric Stimulation, Hot Packs,Iontophoresis, Traction- Mechanical, Ultrasound Other Therapeutic Interventions Manual traction of lumbar spine and hips Other Referrals/Consults Referrals/Consults Recommended Discussed possibility of custom orthotics with pt regarding potential leg length discrepancy. Depending on pt progress and preference, will refer to appropriate provider. Next Visit Focus/Plan Next Note Type Treatment Note Next Visit Plan Progress core strengthening, trunk strengthening, trial squat/STS with weight for body mechanics
--- NOTE | 2023-06-16 15:18 | PT.OTN ---
Current Diagnoses Radiculopathy, lumbar region (06/16/23) Physical Therapy Treatment Note PT-OP-A Visit Information Start: 05/27/23 15:22 Freq: Status: Active Protocol: Document 06/16/23 14:35 SP (Rec: 06/16/23 15:39 SP [id number]) Out-Patient Physical Therapy Visit Information Visit Information Visit Type Treatment Note Visit Start Time 14:35 Visit Stop Time 15:18 Total Visit Minutes 43 Visit Number 3 Number of HEEL LIFT GOUGER Visits 1 Evaluation Information Evaluation Date 05/27/23 PT-OP-B Current Condition Start: 05/27/23 15:22 Freq: Status: Active Protocol: Document 05/27/23 15:23 NM (Rec: 05/27/23 16:43 NM [id number]) Current Condition History of Current Condition Current Complaints low back and B leg pain, weakness, activity intolerance History of Current Condition Pt presents to clinic with chronic low back pain with radiation into BLE, RLE is worse than LLE. Pt reports that his back pain started in his 20's with a football injury to the spine, but the condition worsened about 5 years ago without any known WANDA. His symptoms are primarily burning in the low back and aching in his legs; he also has frequent numbness and tingling in both feet, R>L . Symptoms include B numbness and tingling, back pain, weakness, and decreased activity tolerance. 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 He has had instances where he feels like his legs give out on him. Pt also states that is R leg is shorter than his L leg, so he feels lopsided which he thinks affects his low back pain, too. Pt recently began using an inversion table, which is giving him significant relief. He is currently experiencing difficulty with bending, lifting >50#, sitting <15 min, walking extended distances, and standing for > 1 hr. Prior Treatments and Tests Pt had prior PT about 5 years ago for the same condition, which he said was helpful. He is hopeful that this round of PT will be successful as well. 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 Treatment Goals Patient/Caregiver Goals To decrease back pain Prior Functional Status Baseline Function- ADL's Independent Baseline Function- Mobility Independent Current Functional Impairments (Reported) Functional Limitations- ADL's difficulty with sitting, standing for extended periods of time Functional Limitations- Mobility/Gait Difficulty with walking extended distances (more than a grocery shopping trip) Functional Limitations- Work/School Difficulty bending, lifting for work, and positioning himself underneath the cars Personal Factors Other Personal Factors That May Effect He has a busy work schedule Therapy/Recovery and can only make 1 session/wk PT-OP-C Subjective Start: 05/27/23 15:22 Freq: Status: Active Protocol: Document 06/16/23 14:35 SP (Rec: 06/16/23 15:39 SP [id number]) OP-PT Subjective Patient Comments Patient Comments Pt report having burning in LB extending into thighs and at time down legs. Fairly compliant with HEP but may not be to exact reps. PT-OP-D Balance Start: 05/27/23 15:22 Freq: Status: Active Protocol: Document 05/27/23 15:23 NM (Rec: 05/27/23 16:43 NM [id number]) OP-PT Balance Assessment Sitting Balance Static Sitting Balance Ability Normal Dynamic Sitting Balance Ability Normal Standing Balance Static Standing Balance Ability Fair Dynamic Standing Balance Ability Fair Hawthorne Fall Scale Copyright Permission PT-OP-F Manual Assessment Start: 05/27/23 15:22 Freq: Status: Active Protocol: Document 05/27/23 15:23 NM (Rec: 05/27/23 16:43 NM [id number]) Manual Assessments Soft Tissue Assessment Soft Tissue Mobility Assessment Exhibits muscle guarding along lumbar paraspinals. Some soft tissue tightness and tenderness along the spinous processes near L4-S1 Joint Mobility Assessment Joint Mobility Assessment PA spring testing reveals hypomobility at L4-L5 spinous processes; pt reports symptom decrease with springing. PIVM flexion and sidebending performed, exhibits hypomobility of spinous processes ~L4-L5. B hip joint motion not provocatie except during B hip IR PT-OP-G Mobility & Gait Start: 05/27/23 15:22 Freq: Status: Active Protocol: Document 05/27/23 15:23 NM (Rec: 05/27/23 16:43 NM [id number]) OP Gait Assessment Gait Gait Assistance Required: Independent Distance (Feet) 500 Gait Deviations General Gait Pattern Antalgic,Flexed Trunk Factors Limiting Gait Function Factors Limiting Gait Function Decreased Activity Tolerance, Limited Range of Motion,Pain PT-OP-H Neuro Start: 05/27/23 15:22 Freq: Status: Active Protocol: Document 05/27/23 15:23 NM (Rec: 05/27/23 16:43 NM [id number]) Sensation Evaluation Gross Sensation Gross Sensation Left LE Impaired,Right LE Impaired,Trunk Impaired Sensation Description Paresthesia,Numbness,Tingling, Burning Dermatome Impairments T10,T11,T12,L1,L2,L3,L4,L5,S1 Location Details Left Lower Extremity Light Touch Impaired Right Lower Extremity Light Touch Impaired Comments Summary Comments Decreased sensation to light touch in BLE, R>L, primarily along dermatomes L3-L5 PT-OP-J Posture/Palpation/Skin Start: 05/27/23 15:22 Freq: Status: Active Protocol: Document 05/27/23 15:23 NM (Rec: 05/27/23 16:43 NM [id number]) Posture Evaluation Position Standing Evaluation View all 3 Head/C-Spine Posture Flexed L-Spine Posture Neutral Shoulder Posture (L) Rounded,(R) Rounded Pelvis Posture Anteriorly Tilted Hip Posture (L) Externally Rotated,(R) Externally Rotated PT-OP-K Range of Motion Start: 05/27/23 15:22 Freq: Status: Active Protocol: Document 06/09/23 16:05 NM (Rec: 06/09/23 16:07 NM [id number]) Hip Goniometric Range of Motion Hip Left Testing Position supine and sitting Flexion w/Knee Flexed 95 Abduction 20 Internal Rotation 20 External Rotation 30 Right Testing Position supine and sitting Flexion w/Knee Flexed 90 Abduction 20 Internal Rotation 25 External Rotation 20 PT-OP-L Special Tests Start: 05/27/23 15:22 Freq: Status: Active Protocol: Document 05/27/23 15:23 NM (Rec: 05/27/23 16:43 NM [id number]) Special Tests Lumbar Spine Special Tests Slump Test Results negative Comments no changes in symptoms but does report a stretching feeling in hamstrings Compression Test Results positive bilaterally Comments Ext/SB/Rot provoked symptoms when performed on ea side PT-OP-M Strength Start: 05/27/23 15:22 Freq: Status: Active Protocol: Document 05/27/23 15:23 NM (Rec: 05/27/23 16:43 NM [id number]) Trunk Strength Trunk Manual Muscle Testing Testing Position supine, standing, prone Flexion 4+ Good+ Rotation Left 4+ Good+ Rotation Right 4+ Good+ Lateral Flexion Left 4+ Good+ Lateral Flexion Right 4+ Good+ Comments Extension is provocative of symptoms, therefore plank not tested. Hip Strength Hip Manual Muscle Testing Left Flexion (L2) 4+ Good+ Extension (S1) 4 Good Abduction 4+ Good+ External Rotation 4+ Good+ Internal Rotation 4+ Good+ Comments No pain Right Flexion (L2) 4+ Good+ Extension (S1) 4 Good Abduction 4 Good External Rotation 4+ Good+ Internal Rotation 4+ Good+ Comments No pain PT-OP-Q Treatments Start: 05/27/23 15:22 Freq: Status: Active Protocol: Document 06/16/23 14:35 SP (Rec: 06/16/23 15:39 SP [id number]) Therapeutic Exercises Supine Exercises Knee to chest stretch Supine Exercise Name 1. hip/leg stretch 2. sciatic nerve glide Side bilateral Equipment Used towel use hands Reps/Minutes 30SH, 15 ankle pumps Comments reports low back relief Dying bug Supine Exercise Name HEP reviewed Side bilateral Reps/Minutes 8 reps, 5 reps ea Comments cues to maintain TA activation + ppt stretches Supine Exercise Name reviewed HEP: piriformis (hip ER) Side bilateral Equipment Used use towel assist LE over opp knee Reps/Minutes 30SH Comments good feedback post hip stretch front hips ok LTR Supine Exercise Name in hooklying Side bilateral Resistance AROM Equipment Used 55cm tball Reps/Minutes 10 reps 5 SH end range Comments cued for slow rotation, increase ROM with reps knee fall out Supine Exercise Name stretch- natural self motion Side bilateral Reps/Minutes 30 x2 Comments good adductor/hip flexor stretch Standing Exercises magy curl Standing Exercise Name segmental lumbar roll down and back up wall Resistance added to HEP Equipment Used back/shlds to wall-seg lumbar flexion roll down/up Reps/Minutes 5, 4 reps Comments good lumbar and HS muscle stretch, painfree range Manual Therapy Treatment Soft Tissue Mobilization Hips Body Location B piriformis, glut med Mobilization Type Strumming,Sustained Pressure, Other Intensity/Depth mod Body Position prone over pilllows Comments MWM hip IR/ ER AROM back Body Location B QL, ES, paraspinals Mobilization Type Rolling,Strumming,Sustained Pressure Intensity/Depth Moderate Body Position Prone Comments manual STM PT-OP-T Assessment and Plan Start: 05/27/23 15:22 Freq: Status: Active Protocol: Document 06/16/23 14:35 SP (Rec: 06/16/23 15:39 SP [id number]) Physical Therapy Assessment Goals Four Impairment function, pain Impairment Pt reports he is unable to squat due to pain and symptom provocation Short Term Goal (STG) Pt will be able to squat at least 5 times with low back pain of 4/10 or less without compensations in order to demonstrate improved activity tolerance, symptom management, and ROM. STG Duration 4 weeks Head Up Operator Goal (LTG) Pt will be able to squat for at least 30 seconds with low back pain of 4/10 or less without compensations in order to demonstrate improved activity tolerance, symptom management, and ROM. LTG Duration 8 weeks Three Impairment function, pain Impairment Oswestry score: 19/50 Short Term Goal (STG) Pt will improve Oswestry score by at least 4 points in order to demonstrate improved activity tolerance and pain management strategies. STG Duration 4 weeks Detention Goal (LTG) Pt will improve Oswestry score by at least 9 points (MCID) in order to demonstrates improved activity tolerance, pain management strategies, and quality of life. LTG Duration 8 weeks Two Impairment strength Impairment Pt unable to perform a standard or modified plank due to pain during back extension Short Term Goal (STG) Pt will be able to perform at least a modified plank for at least 15 seconds in order to demonstrate improved core strength, extension ROM, and activity tolerance. 06/16/23: GOAL MET fine 30SH off knees, 30 sec x2 off knees painfree but tiring. STG Duration 4 weeks GOAL MET 06/16/23 Detention Goal (LTG) Pt will be able to perform at least a modified plank for at least 45 seconds in order to demonstrate improved core strength, extension ROM, and activity tolerance. LTG Duration 8 weeks One Impairment ROM Impairment Lateral flexion (10 deg B) and extension (20deg) ROM limited Short Term Goal (STG) Pt will improve trunk lateral flexion and extension ROM by at least 5 degrees in order to show improved motion. STG Duration 4 weeks Detention Goal (LTG) Pt will improve lateral flexion and extension ROM by at least 5 degrees with pain of 2 or less in order to show improvements in motion, activity tolerance, and pain management. LTG Duration 8 weeks Assessment Summary Assessment Pt good response to manual LS and MWM B posterior hip. Improved TA engagement during deadbug and initiated plank no back pain but good core tiring reports. Good posterior chain stretch end tx painfree in back to add for home carryover. Physical Therapy Plan Frequency and Duration Frequency of Treatment 1x/Week Duration of treatment (weeks) 8 Plan of Care Start Date 05/27/23 Plan of Care End Date 07/22/23 Therapeutic Interventions Therapeutic Interventions Balance Training,Gait Training ,Home Exercise Program,Joint Mobilizations,Manual Therapy, Neuromuscular Re-education, Orthotic/Prosthetic Management ,Patient/Caregiver Education, Sensory Integration,Soft Tissue Mobilization, Therapeutic Activities, Therapeutic Exercises Modalities Biofeedback,Cold Pack/Ice Massage,Electric Stimulation, Hot Packs,Iontophoresis, Traction- Mechanical, Ultrasound Other Therapeutic Interventions Manual traction of lumbar spine and hips Other Referrals/Consults Referrals/Consults Recommended Discussed possibility of custom orthotics with pt regarding potential leg length discrepancy. Depending on pt progress and preference, will refer to appropriate provider. Next Visit Focus/Plan Next Note Type Treatment Note Next Visit Plan Recheck HEP: plank, bug, magy curl, sciatic glide. Add paloff press, bandwalk. POC: Progress core strengthening, trunk strengthening, trial squat/STS with weight for body mechanics dowel/crate
--- NOTE | 2023-06-23 07:50 | PT-OP ANOTE ---
Pt called early am, still feeling sick, unable to attend PT. [employer] called and discussed can call anytime and leave message to cancel preferrably >24 hrs to allow filling appt time, pt verbalized didn't realize and confirmed will do and knowing next appt Fri.
--- NOTE | 2023-06-26 15:47 | PT-OP ANOTE ---
NO SHOW- PT called pt about missed session today, but unable to reach pt or leave voicemail (mailbox full). Pt did not confirm appt today. If pt does not show up to next appt on Thursday or call to cancel, then he will be in violation of attendance policy. Will follow up with pt
--- NOTE | 2023-06-30 16:08 | PT.OTN ---
Current Diagnoses Radiculopathy, lumbar region (06/30/23) Physical Therapy Treatment Note PT-OP-A Visit Information Start: 05/27/23 15:22 Freq: Status: Active Protocol: Document 06/30/23 14:59 NM (Rec: 06/30/23 16:07 NM [id number]) Out-Patient Physical Therapy Visit Information Visit Information Visit Type Progress Note Visit Start Time 14:30 Visit Stop Time 15:15 Total Visit Minutes 45 Visit Number 4 Evaluation Information Evaluation Date 05/27/23 PT-OP-B Current Condition Start: 05/27/23 15:22 Freq: Status: Active Protocol: Document 05/27/23 15:23 NM (Rec: 05/27/23 16:43 NM [id number]) Current Condition History of Current Condition Current Complaints low back and B leg pain, weakness, activity intolerance History of Current Condition Pt presents to clinic with chronic low back pain with radiation into BLE, RLE is worse than LLE. Pt reports that his back pain started in his 20's with a football injury to the spine, but the condition worsened about 5 years ago without any known WANDA. His symptoms are primarily burning in the low back and aching in his legs; he also has frequent numbness and tingling in both feet, R>L . Symptoms include B numbness and tingling, back pain, weakness, and decreased activity tolerance. 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 He has had instances where he feels like his legs give out on him. Pt also states that is R leg is shorter than his L leg, so he feels lopsided which he thinks affects his low back pain, too. Pt recently began using an inversion table, which is giving him significant relief. He is currently experiencing difficulty with bending, lifting >50#, sitting <15 min, walking extended distances, and standing for > 1 hr. Prior Treatments and Tests Pt had prior PT about 5 years ago for the same condition, which he said was helpful. He is hopeful that this round of PT will be successful as well. 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 Treatment Goals Patient/Caregiver Goals To decrease back pain Prior Functional Status Baseline Function- ADL's Independent Baseline Function- Mobility Independent Current Functional Impairments (Reported) Functional Limitations- ADL's difficulty with sitting, standing for extended periods of time Functional Limitations- Mobility/Gait Difficulty with walking extended distances (more than a grocery shopping trip) Functional Limitations- Work/School Difficulty bending, lifting for work, and positioning himself underneath the cars Personal Factors Other Personal Factors That May Effect He has a busy work schedule Therapy/Recovery and can only make 1 session/wk PT-OP-C Subjective Start: 05/27/23 15:22 Freq: Status: Active Protocol: Document 06/30/23 14:59 NM (Rec: 06/30/23 16:07 NM [id number]) OP-PT Subjective Patient Comments Patient Comments Pt reports that he is still having burning into his lateral thighs, but is it decreased with pressure on his low back at one vertebrae. He reports 1/10 pain at this session and throughout the week. PT-OP-D Balance Start: 05/27/23 15:22 Freq: Status: Active Protocol: Document 05/27/23 15:23 NM (Rec: 05/27/23 16:43 NM [id number]) OP-PT Balance Assessment Sitting Balance Static Sitting Balance Ability Normal Dynamic Sitting Balance Ability Normal Standing Balance Static Standing Balance Ability Fair Dynamic Standing Balance Ability Fair Hawthorne Fall Scale Copyright Permission PT-OP-F Manual Assessment Start: 05/27/23 15:22 Freq: Status: Active Protocol: Document 05/27/23 15:23 NM (Rec: 05/27/23 16:43 NM [id number]) Manual Assessments Soft Tissue Assessment Soft Tissue Mobility Assessment Exhibits muscle guarding along lumbar paraspinals. Some soft tissue tightness and tenderness along the spinous processes near L4-S1 Joint Mobility Assessment Joint Mobility Assessment PA spring testing reveals hypomobility at L4-L5 spinous processes; pt reports symptom decrease with springing. PIVM flexion and sidebending performed, exhibits hypomobility of spinous processes ~L4-L5. B hip joint motion not provocatie except during B hip IR PT-OP-G Mobility & Gait Start: 05/27/23 15:22 Freq: Status: Active Protocol: Document 05/27/23 15:23 NM (Rec: 05/27/23 16:43 NM [id number]) OP Gait Assessment Gait Gait Assistance Required: Independent Distance (Feet) 500 Gait Deviations General Gait Pattern Antalgic,Flexed Trunk Factors Limiting Gait Function Factors Limiting Gait Function Decreased Activity Tolerance, Limited Range of Motion,Pain PT-OP-H Neuro Start: 05/27/23 15:22 Freq: Status: Active Protocol: Document 05/27/23 15:23 NM (Rec: 05/27/23 16:43 NM [id number]) Sensation Evaluation Gross Sensation Gross Sensation Left LE Impaired,Right LE Impaired,Trunk Impaired Sensation Description Paresthesia,Numbness,Tingling, Burning Dermatome Impairments T10,T11,T12,L1,L2,L3,L4,L5,S1 Location Details Left Lower Extremity Light Touch Impaired Right Lower Extremity Light Touch Impaired Comments Summary Comments Decreased sensation to light touch in BLE, R>L, primarily along dermatomes L3-L5 PT-OP-J Posture/Palpation/Skin Start: 05/27/23 15:22 Freq: Status: Active Protocol: Document 05/27/23 15:23 NM (Rec: 05/27/23 16:43 NM [id number]) Posture Evaluation Position Standing Evaluation View all 3 Head/C-Spine Posture Flexed L-Spine Posture Neutral Shoulder Posture (L) Rounded,(R) Rounded Pelvis Posture Anteriorly Tilted Hip Posture (L) Externally Rotated,(R) Externally Rotated PT-OP-K Range of Motion Start: 05/27/23 15:22 Freq: Status: Active Protocol: Document 06/30/23 14:59 NM (Rec: 06/30/23 16:07 NM [id number]) Lumbar Spine Range of Motion Lumbar Spine Active Degrees Comments 06/30/23 @ PN flex: 60 deg ext: 30 deg R lateral flex: 20 deg L lateral flex: 20 deg R rotation: 7 cm L rotationL 6 cm No reported pain with any movement PT-OP-L Special Tests Start: 05/27/23 15:22 Freq: Status: Active Protocol: Document 05/27/23 15:23 NM (Rec: 05/27/23 16:43 NM [id number]) Special Tests Lumbar Spine Special Tests Slump Test Results negative Comments no changes in symptoms but does report a stretching feeling in hamstrings Compression Test Results positive bilaterally Comments Ext/SB/Rot provoked symptoms when performed on ea side PT-OP-M Strength Start: 05/27/23 15:22 Freq: Status: Active Protocol: Document 06/30/23 14:59 NM (Rec: 06/30/23 16:07 NM [id number]) Trunk Strength Trunk Manual Muscle Testing Comments 06/30/23: -Able to perform plank for 35 seconds without demonstrating instability or pain -Able to perform 5/5 abdominal /trunk flexion MMT PT-OP-Q Treatments Start: 05/27/23 15:22 Freq: Status: Active Protocol: Document 06/30/23 14:59 NM (Rec: 06/30/23 16:07 NM [id number]) Therapeutic Exercises Standing Exercises hip flexion stretch Standing Exercise Name Reports improvement in hip symptom reduction Side bilateral Equipment Used stairs ~Captain alfonso Reps/Minutes 1x60 Comments cues for post pelvic tilt for greater stretch Therapeutic Activity Therapeutic Activity Squat Reps/Minutes 2x15 ea (~7 min) Comments 1. 30 sec squat to test goals, AROM only 2. AROM B Squat with crate in hands to simulate motion. Emphasis on knee and hip flex, glute activation to prevent strain on lumbar spine 2. B Squat lifting a 10# tball from the floor to a shelf at height of pt's head, then returning to squat position. Emphasis on return to lifting, especially in garage/work. Pt reports no low back or hip pain with movements deadlift Name 10# db ea hand Reps/Minutes 2x15 ea (~5 min) Comments 1. AROM: with wall behind pt for tactile cue for hip hinge; trialed within limited ROM with 10# db in ea hand 2. Hip hinge to mid monterroso for increased ROM with 10# db in ea hand Mod cues for hip hinge initially, improved with pt moving away from wall. For ADLs (emptying flight communications specialist, laundry, etc) Pt reports no low back or hip pain with movements. Manual Therapy Treatment Joint Mobilizations LS Joint L1-L5 Direction P-A Grade III Body Position Prone Reps/Duration 4x30 ea vertebrae Comments Pt reports most relief at L4-5 followed by at L2-3 with P-A mobilization. Performed with exhale. Pt reports that the burning sensation in his hips disappears completely when mobilizing L4-L5 Nerve Glides Lateral Femoral Cutaneous n Nerve bilaterally Body Position Prone Reps/Duration 10 reps ea leg Comments Hip ext off table in prone with head in flexion, then as hip flexes back into neutral, the head moves into ext. Cues for pt's pelvis to remain stationary and neutral. Pt reports minor relief of lateral hip symptoms with glide PT-OP-T Assessment and Plan Start: 05/27/23 15:22 Freq: Status: Active Protocol: Document 06/30/23 14:59 NM (Rec: 06/30/23 16:07 NM [id number]) Physical Therapy Assessment Goals Four Impairment function, pain Impairment Pt reports he is unable to squat due to pain and symptom provocation Short Term Goal (STG) Pt will be able to squat at least 5 times with low back pain of 4/10 or less without compensations in order to demonstrate improved activity tolerance, symptom management, and ROM. STG Duration 4 weeks Correction Goal (LTG) Pt will be able to squat for at least 30 seconds with low back pain of 4/10 or less without compensations in order to demonstrate improved activity tolerance, symptom management, and ROM. 06/30/23: Pt able to squat for at least 30 seconds consecutively with 0/10 reported pain in low back or hips LTG Duration 8 weeks MET Three Impairment function, pain Impairment Oswestry score: 50 Short Term Goal (STG) Pt will improve Oswestry score by at least 4 points in order to demonstrate improved activity tolerance and pain management strategies. STG Duration 4 weeks Correction Goal (LTG) Pt will improve Oswestry score by at least 9 points (MCID) in order to demonstrates improved activity tolerance, pain management strategies, and quality of life. 06/30/23: MET 50 LTG Duration 8 weeks MET Two Impairment strength Impairment Pt unable to perform a standard or modified plank due to pain during back extension Short Term Goal (STG) Pt will be able to perform at least a modified plank for at least 15 seconds in order to demonstrate improved core strength, extension ROM, and activity tolerance. 06/16/23: GOAL MET fine 30SH off knees, 30 sec x2 off knees painfree but tiring. STG Duration 4 weeks GOAL MET 06/16/23 Before School Goal (LTG) Pt will be able to perform at least a modified plank for at least 45 seconds in order to demonstrate improved core strength, extension ROM, and activity tolerance. 06/30/23: Pt able to perform 35 sec plank without sway or low back pain LTG Duration 8 weeks NOT MET One Impairment ROM Impairment Lateral flexion (10 deg B) and extension (20deg) ROM limited Short Term Goal (STG) Pt will improve trunk lateral flexion and extension ROM by at least 5 degrees in order to show improved motion. STG Duration 4 weeks Before School Goal (LTG) Pt will improve lateral flexion and extension ROM by at least 5 degrees with pain of 2 or less in order to show improvements in motion, activity tolerance, and pain management. 06/30/23: Extension ROM 30 deg (10 deg increase) and B lateral flexion 20 deg ( increase from 10 deg) without reproducing lumbar pain LTG Duration 8 weeks MET Assessment Summary Assessment Progress note today (30 days since IE). Tmt focus on performing squats and deadlifts for functional lumbar spine strengthening. Pt tolerated well with no new symptoms. Pt reports that his lumbar spine and hip pain has improved significantly since beginning PT. He now reports that he has 0-1/10 pain in his lumbar spine. Currently, his primary complaint is the burning sensation that he feels along his lateral thighs /hips. He reports that this sensation is completely eradicated during manual grade III posterior-anterior mobilization at L4-L5. Trialed lateral femoral cutaneous n glide to attempt to decrease lateral hip burning symptoms; pt reports mild improvement. Since IE, pt's global trunk ROM has improved, especially into extension and lateral flexion. His trunk strength has also improved, and he is able to perform a full plank for 35 seconds. He has met 4/5 goals and is progressing toward the last one. Pt would benefit from further skilled PT for core/lumbar stabilization, return to functional resisted lifting, and to decrease the nerve- related symptoms along his lateral thighs. Physical Therapy Plan Frequency and Duration Frequency of Treatment 1x/Week Duration of treatment (weeks) 8 Plan of Care Start Date 05/27/23 Plan of Care End Date 07/22/23 Therapeutic Interventions Therapeutic Interventions Balance Training,Gait Training ,Home Exercise Program,Joint Mobilizations,Manual Therapy, Neuromuscular Re-education, Orthotic/Prosthetic Management ,Patient/Caregiver Education, Sensory Integration,Soft Tissue Mobilization, Therapeutic Activities, Therapeutic Exercises Modalities Biofeedback,Cold Pack/Ice Massage,Electric Stimulation, Hot Packs,Iontophoresis, Traction- Mechanical, Ultrasound Other Therapeutic Interventions Manual traction of lumbar spine and hips Other Referrals/Consults Referrals/Consults Recommended Discussed possibility of custom orthotics with pt regarding potential leg length discrepancy. Depending on pt progress and preference, will refer to appropriate provider. Next Visit Focus/Plan Next Note Type Treatment Note Next Visit Plan Plak, hip strengthening, glute strengthening. Add jocelynff press, bandwalk. POC: Progress core strengthening, trunk strengthening, squat/STS with weight for body mechanics ansley/margarette D/c in 1-2 session
--- NOTE | 2023-06-30 16:10 | PT.OTN ---
Current Diagnoses Radiculopathy, lumbar region (06/30/23) Physical Therapy Treatment Note PT-OP-A Visit Information Start: 05/27/23 15:22 Freq: Status: Active Protocol: Document 06/30/23 14:59 NM (Rec: 06/30/23 16:07 NM [id number]) Out-Patient Physical Therapy Visit Information Visit Information Visit Type Progress Note Visit Start Time 14:30 Visit Stop Time 15:15 Total Visit Minutes 45 Visit Number 4 Evaluation Information Evaluation Date 05/27/23 PT-OP-B Current Condition Start: 05/27/23 15:22 Freq: Status: Active Protocol: Document 05/27/23 15:23 NM (Rec: 05/27/23 16:43 NM [id number]) Current Condition History of Current Condition Current Complaints low back and B leg pain, weakness, activity intolerance History of Current Condition Pt presents to clinic with chronic low back pain with radiation into BLE, RLE is worse than LLE. Pt reports that his back pain started in his 20's with a football injury to the spine, but the condition worsened about 5 years ago without any known WANDA. His symptoms are primarily burning in the low back and aching in his legs; he also has frequent numbness and tingling in both feet, R>L . Symptoms include B numbness and tingling, back pain, weakness, and decreased activity tolerance. 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 He has had instances where he feels like his legs give out on him. Pt also states that is R leg is shorter than his L leg, so he feels lopsided which he thinks affects his low back pain, too. Pt recently began using an inversion table, which is giving him significant relief. He is currently experiencing difficulty with bending, lifting >50#, sitting <15 min, walking extended distances, and standing for > 1 hr. Prior Treatments and Tests Pt had prior PT about 5 years ago for the same condition, which he said was helpful. He is hopeful that this round of PT will be successful as well. 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 Treatment Goals Patient/Caregiver Goals To decrease back pain Prior Functional Status Baseline Function- ADL's Independent Baseline Function- Mobility Independent Current Functional Impairments (Reported) Functional Limitations- ADL's difficulty with sitting, standing for extended periods of time Functional Limitations- Mobility/Gait Difficulty with walking extended distances (more than a grocery shopping trip) Functional Limitations- Work/School Difficulty bending, lifting for work, and positioning himself underneath the cars Personal Factors Other Personal Factors That May Effect He has a busy work schedule Therapy/Recovery and can only make 1 session/wk PT-OP-C Subjective Start: 05/27/23 15:22 Freq: Status: Active Protocol: Document 06/30/23 14:59 NM (Rec: 06/30/23 16:07 NM [id number]) OP-PT Subjective Patient Comments Patient Comments Pt reports that he is still having burning into his lateral thighs, but is it decreased with pressure on his low back at one vertebrae. He reports 1/10 pain at this session and throughout the week. PT-OP-D Balance Start: 05/27/23 15:22 Freq: Status: Active Protocol: Document 05/27/23 15:23 NM (Rec: 05/27/23 16:43 NM [id number]) OP-PT Balance Assessment Sitting Balance Static Sitting Balance Ability Normal Dynamic Sitting Balance Ability Normal Standing Balance Static Standing Balance Ability Fair Dynamic Standing Balance Ability Fair Hawthorne Fall Scale Copyright Permission PT-OP-F Manual Assessment Start: 05/27/23 15:22 Freq: Status: Active Protocol: Document 05/27/23 15:23 NM (Rec: 05/27/23 16:43 NM [id number]) Manual Assessments Soft Tissue Assessment Soft Tissue Mobility Assessment Exhibits muscle guarding along lumbar paraspinals. Some soft tissue tightness and tenderness along the spinous processes near L4-S1 Joint Mobility Assessment Joint Mobility Assessment PA spring testing reveals hypomobility at L4-L5 spinous processes; pt reports symptom decrease with springing. PIVM flexion and sidebending performed, exhibits hypomobility of spinous processes ~L4-L5. B hip joint motion not provocatie except during B hip IR PT-OP-G Mobility & Gait Start: 05/27/23 15:22 Freq: Status: Active Protocol: Document 05/27/23 15:23 NM (Rec: 05/27/23 16:43 NM [id number]) OP Gait Assessment Gait Gait Assistance Required: Independent Distance (Feet) 500 Gait Deviations General Gait Pattern Antalgic,Flexed Trunk Factors Limiting Gait Function Factors Limiting Gait Function Decreased Activity Tolerance, Limited Range of Motion,Pain PT-OP-H Neuro Start: 05/27/23 15:22 Freq: Status: Active Protocol: Document 05/27/23 15:23 NM (Rec: 05/27/23 16:43 NM [id number]) Sensation Evaluation Gross Sensation Gross Sensation Left LE Impaired,Right LE Impaired,Trunk Impaired Sensation Description Paresthesia,Numbness,Tingling, Burning Dermatome Impairments T10,T11,T12,L1,L2,L3,L4,L5,S1 Location Details Left Lower Extremity Light Touch Impaired Right Lower Extremity Light Touch Impaired Comments Summary Comments Decreased sensation to light touch in BLE, R>L, primarily along dermatomes L3-L5 PT-OP-J Posture/Palpation/Skin Start: 05/27/23 15:22 Freq: Status: Active Protocol: Document 05/27/23 15:23 NM (Rec: 05/27/23 16:43 NM [id number]) Posture Evaluation Position Standing Evaluation View all 3 Head/C-Spine Posture Flexed L-Spine Posture Neutral Shoulder Posture (L) Rounded,(R) Rounded Pelvis Posture Anteriorly Tilted Hip Posture (L) Externally Rotated,(R) Externally Rotated PT-OP-K Range of Motion Start: 05/27/23 15:22 Freq: Status: Active Protocol: Document 06/30/23 14:59 NM (Rec: 06/30/23 16:07 NM [id number]) Lumbar Spine Range of Motion Lumbar Spine Active Degrees Comments 06/30/23 @ PN flex: 60 deg ext: 30 deg R lateral flex: 20 deg L lateral flex: 20 deg R rotation: 7 cm L rotationL 6 cm No reported pain with any movement PT-OP-L Special Tests Start: 05/27/23 15:22 Freq: Status: Active Protocol: Document 05/27/23 15:23 NM (Rec: 05/27/23 16:43 NM [id number]) Special Tests Lumbar Spine Special Tests Slump Test Results negative Comments no changes in symptoms but does report a stretching feeling in hamstrings Compression Test Results positive bilaterally Comments Ext/SB/Rot provoked symptoms when performed on ea side PT-OP-M Strength Start: 05/27/23 15:22 Freq: Status: Active Protocol: Document 06/30/23 14:59 NM (Rec: 06/30/23 16:07 NM [id number]) Trunk Strength Trunk Manual Muscle Testing Comments 06/30/23: -Able to perform plank for 35 seconds without demonstrating instability or pain -Able to perform 5/5 abdominal /trunk flexion MMT PT-OP-Q Treatments Start: 05/27/23 15:22 Freq: Status: Active Protocol: Document 06/30/23 14:59 NM (Rec: 06/30/23 16:07 NM [id number]) Therapeutic Exercises Standing Exercises hip flexion stretch Standing Exercise Name Reports improvement in hip symptom reduction Side bilateral Equipment Used stairs ~Captain alfonso Reps/Minutes 1x60 Comments cues for post pelvic tilt for greater stretch Therapeutic Activity Therapeutic Activity Squat Reps/Minutes 2x15 ea (~7 min) Comments 1. 30 sec squat to test goals, AROM only 2. AROM B Squat with crate in hands to simulate motion. Emphasis on knee and hip flex, glute activation to prevent strain on lumbar spine 2. B Squat lifting a 10# tball from the floor to a shelf at height of pt's head, then returning to squat position. Emphasis on return to lifting, especially in garage/work. Pt reports no low back or hip pain with movements deadlift Name 10# db ea hand Reps/Minutes 2x15 ea (~5 min) Comments 1. AROM: with wall behind pt for tactile cue for hip hinge; trialed within limited ROM with 10# db in ea hand 2. Hip hinge to mid monterroso for increased ROM with 10# db in ea hand Mod cues for hip hinge initially, improved with pt moving away from wall. For ADLs (emptying drug discovery informatics specialist, laundry, etc) Pt reports no low back or hip pain with movements. Manual Therapy Treatment Joint Mobilizations LS Joint L1-L5 Direction P-A Grade III Body Position Prone Reps/Duration 4x30 ea vertebrae Comments Pt reports most relief at L4-5 followed by at L2-3 with P-A mobilization. Performed with exhale. Pt reports that the burning sensation in his hips disappears completely when mobilizing L4-L5 Nerve Glides Lateral Femoral Cutaneous n Nerve bilaterally Body Position Prone Reps/Duration 10 reps ea leg Comments Hip ext off table in prone with head in flexion, then as hip flexes back into neutral, the head moves into ext. Cues for pt's pelvis to remain stationary and neutral. Pt reports minor relief of lateral hip symptoms with glide PT-OP-T Assessment and Plan Start: 05/27/23 15:22 Freq: Status: Active Protocol: Document 06/30/23 14:59 NM (Rec: 06/30/23 16:07 NM [id number]) Physical Therapy Assessment Goals Four Impairment function, pain Impairment Pt reports he is unable to squat due to pain and symptom provocation Short Term Goal (STG) Pt will be able to squat at least 5 times with low back pain of 4/10 or less without compensations in order to demonstrate improved activity tolerance, symptom management, and ROM. STG Duration 4 weeks Skilled Nursing Goal (LTG) Pt will be able to squat for at least 30 seconds with low back pain of 4/10 or less without compensations in order to demonstrate improved activity tolerance, symptom management, and ROM. 06/30/23: Pt able to squat for at least 30 seconds consecutively with 0/10 reported pain in low back or hips LTG Duration 8 weeks MET Three Impairment function, pain Impairment Oswestry score: 50 Short Term Goal (STG) Pt will improve Oswestry score by at least 4 points in order to demonstrate improved activity tolerance and pain management strategies. STG Duration 4 weeks Skilled Nursing Goal (LTG) Pt will improve Oswestry score by at least 9 points (MCID) in order to demonstrates improved activity tolerance, pain management strategies, and quality of life. 06/30/23: MET 50 LTG Duration 8 weeks MET Two Impairment strength Impairment Pt unable to perform a standard or modified plank due to pain during back extension Short Term Goal (STG) Pt will be able to perform at least a modified plank for at least 15 seconds in order to demonstrate improved core strength, extension ROM, and activity tolerance. 06/16/23: GOAL MET fine 30SH off knees, 30 sec x2 off knees painfree but tiring. STG Duration 4 weeks GOAL MET 06/16/23 Dirt Bike Racer Goal (LTG) Pt will be able to perform at least a modified plank for at least 45 seconds in order to demonstrate improved core strength, extension ROM, and activity tolerance. 06/30/23: Pt able to perform 35 sec plank without sway or low back pain LTG Duration 8 weeks NOT MET One Impairment ROM Impairment Lateral flexion (10 deg B) and extension (20deg) ROM limited Short Term Goal (STG) Pt will improve trunk lateral flexion and extension ROM by at least 5 degrees in order to show improved motion. STG Duration 4 weeks Dirt Bike Racer Goal (LTG) Pt will improve lateral flexion and extension ROM by at least 5 degrees with pain of 2 or less in order to show improvements in motion, activity tolerance, and pain management. 06/30/23: Extension ROM 30 deg (10 deg increase) and B lateral flexion 20 deg ( increase from 10 deg) without reproducing lumbar pain LTG Duration 8 weeks MET Assessment Summary Assessment Progress note today (30 days since IE). Tmt focus on performing squats and deadlifts for functional lumbar spine strengthening. Pt tolerated well with no new symptoms. Pt reports that his lumbar spine and hip pain has improved significantly since beginning PT. He now reports that he has 0-1/10 pain in his lumbar spine. Currently, his primary complaint is the burning sensation that he feels along his lateral thighs /hips. He reports that this sensation is completely eradicated during manual grade III posterior-anterior mobilization at L4-L5. Trialed lateral femoral cutaneous n glide to attempt to decrease lateral hip burning symptoms; pt reports mild improvement. Since IE, pt's global trunk ROM has improved, especially into extension and lateral flexion. His trunk strength has also improved, and he is able to perform a full plank for 35 seconds. He has met 4/5 goals and is progressing toward the last one. Pt would benefit from further skilled PT for core/lumbar stabilization, return to functional resisted lifting, and to decrease the nerve- related symptoms along his lateral thighs. Physical Therapy Plan Frequency and Duration Frequency of Treatment 1x/Week Duration of treatment (weeks) 8 Plan of Care Start Date 05/27/23 Plan of Care End Date 07/22/23 Therapeutic Interventions Therapeutic Interventions Balance Training,Gait Training ,Home Exercise Program,Joint Mobilizations,Manual Therapy, Neuromuscular Re-education, Orthotic/Prosthetic Management ,Patient/Caregiver Education, Sensory Integration,Soft Tissue Mobilization, Therapeutic Activities, Therapeutic Exercises Modalities Biofeedback,Cold Pack/Ice Massage,Electric Stimulation, Hot Packs,Iontophoresis, Traction- Mechanical, Ultrasound Other Therapeutic Interventions Manual traction of lumbar spine and hips Other Referrals/Consults Referrals/Consults Recommended Discussed possibility of custom orthotics with pt regarding potential leg length discrepancy. Depending on pt progress and preference, will refer to appropriate provider. Next Visit Focus/Plan Next Note Type Treatment Note Next Visit Plan Plak, hip strengthening, glute strengthening. Add jocelynff press, bandwalk. POC: Progress core strengthening, trunk strengthening, squat/STS with weight for body mechanics ansley/margarette D/c in 1-2 session
--- NOTE | 2023-07-22 15:00 | PT-OP ANOTE ---
PT spoked to pt on phone on 07/22/23 at 14:08 as pt's POC was ending that day, and he had canceled his last several appts. Pt reports that he is not having any low back pain and would like to discharge from OP PT services. PT agreed as pt has met goals
--- NOTE | 2023-07-24 07:57 | PT.OPDS ---
Current Diagnoses Radiculopathy, lumbar region (06/30/23) Visit Care Team Role Provider Type KULWINDER Salazar Attending Provider Non-Staff Family Provider Primary Care Provider Referring Provider Specialty: Nursing Address: [facility], [address], [place], [address] Email: Visit Number Visit Number 4 Discharge Summary PT-OP-B Current Condition Start: 05/27/23 15:22 Freq: Status: Active Protocol: Document 05/27/23 15:23 NM (Rec: 05/27/23 16:43 NM [id number]) Current Condition History of Current Condition Current Complaints low back and B leg pain, weakness, activity intolerance History of Current Condition Pt presents to clinic with chronic low back pain with radiation into BLE, RLE is worse than LLE. Pt reports that his back pain started in his 20's with a football injury to the spine, but the condition worsened about 5 years ago without any known WANDA. His symptoms are primarily burning in the low back and aching in his legs; he also has frequent numbness and tingling in both feet, R>L . Symptoms include B numbness and tingling, back pain, weakness, and decreased activity tolerance. 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 He has had instances where he feels like his legs give out on him. Pt also states that is R leg is shorter than his L leg, so he feels lopsided which he thinks affects his low back pain, too. Pt recently began using an inversion table, which is giving him significant relief. He is currently experiencing difficulty with bending, lifting >50#, sitting <15 min, walking extended distances, and standing for > 1 hr. Prior Treatments and Tests Pt had prior PT about 5 years ago for the same condition, which he said was helpful. He is hopeful that this round of PT will be successful as well. 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 Treatment Goals Patient/Caregiver Goals To decrease back pain Prior Functional Status Baseline Function- ADL's Independent Baseline Function- Mobility Independent Current Functional Impairments (Reported) Functional Limitations- ADL's difficulty with sitting, standing for extended periods of time Functional Limitations- Mobility/Gait Difficulty with walking extended distances (more than a grocery shopping trip) Functional Limitations- Work/School Difficulty bending, lifting for work, and positioning himself underneath the cars Personal Factors Other Personal Factors That May Effect He has a busy work schedule Therapy/Recovery and can only make 1 session/wk PT-OP-C Subjective Start: 05/27/23 15:22 Freq: Status: Active Protocol: Document 06/30/23 14:59 NM (Rec: 06/30/23 16:07 NM [id number]) OP-PT Subjective Patient Comments Patient Comments Pt reports that he is still having burning into his lateral thighs, but is it decreased with pressure on his low back at one vertebrae. He reports 1/10 pain at this session and throughout the week. PT-OP-D Balance Start: 05/27/23 15:22 Freq: Status: Active Protocol: Document 05/27/23 15:23 NM (Rec: 05/27/23 16:43 NM [id number]) OP-PT Balance Assessment Sitting Balance Static Sitting Balance Ability Normal Dynamic Sitting Balance Ability Normal Standing Balance Static Standing Balance Ability Fair Dynamic Standing Balance Ability Fair Hawthorne Fall Scale Copyright Permission PT-OP-F Manual Assessment Start: 05/27/23 15:22 Freq: Status: Active Protocol: Document 05/27/23 15:23 NM (Rec: 05/27/23 16:43 NM [id number]) Manual Assessments Soft Tissue Assessment Soft Tissue Mobility Assessment Exhibits muscle guarding along lumbar paraspinals. Some soft tissue tightness and tenderness along the spinous processes near L4-S1 Joint Mobility Assessment Joint Mobility Assessment PA spring testing reveals hypomobility at L4-L5 spinous processes; pt reports symptom decrease with springing. PIVM flexion and sidebending performed, exhibits hypomobility of spinous processes ~L4-L5. B hip joint motion not provocatie except during B hip IR PT-OP-G Mobility & Gait Start: 05/27/23 15:22 Freq: Status: Active Protocol: Document 05/27/23 15:23 NM (Rec: 05/27/23 16:43 NM [id number]) OP Gait Assessment Gait Gait Assistance Required: Independent Distance (Feet) 500 Gait Deviations General Gait Pattern Antalgic,Flexed Trunk Factors Limiting Gait Function Factors Limiting Gait Function Decreased Activity Tolerance, Limited Range of Motion,Pain PT-OP-H Neuro Start: 05/27/23 15:22 Freq: Status: Active Protocol: Document 05/27/23 15:23 NM (Rec: 05/27/23 16:43 NM [id number]) Sensation Evaluation Gross Sensation Gross Sensation Left LE Impaired,Right LE Impaired,Trunk Impaired Sensation Description Paresthesia,Numbness,Tingling, Burning Dermatome Impairments T10,T11,T12,L1,L2,L3,L4,L5,S1 Location Details Left Lower Extremity Light Touch Impaired Right Lower Extremity Light Touch Impaired Comments Summary Comments Decreased sensation to light touch in BLE, R>L, primarily along dermatomes L3-L5 PT-OP-J Posture/Palpation/Skin Start: 05/27/23 15:22 Freq: Status: Active Protocol: Document 05/27/23 15:23 NM (Rec: 05/27/23 16:43 NM [id number]) Posture Evaluation Position Standing Evaluation View all 3 Head/C-Spine Posture Flexed L-Spine Posture Neutral Shoulder Posture (L) Rounded,(R) Rounded Pelvis Posture Anteriorly Tilted Hip Posture (L) Externally Rotated,(R) Externally Rotated PT-OP-K Range of Motion Start: 05/27/23 15:22 Freq: Status: Active Protocol: Document 06/30/23 14:59 NM (Rec: 06/30/23 16:07 NM [id number]) Lumbar Spine Range of Motion Lumbar Spine Active Degrees Comments 06/30/23 @ PN flex: 60 deg ext: 30 deg R lateral flex: 20 deg L lateral flex: 20 deg R rotation: 7 cm L rotationL 6 cm No reported pain with any movement PT-OP-L Special Tests Start: 05/27/23 15:22 Freq: Status: Active Protocol: Document 05/27/23 15:23 NM (Rec: 05/27/23 16:43 NM [id number]) Special Tests Lumbar Spine Special Tests Slump Test Results negative Comments no changes in symptoms but does report a stretching feeling in hamstrings Compression Test Results positive bilaterally Comments Ext/SB/Rot provoked symptoms when performed on ea side PT-OP-M Strength Start: 05/27/23 15:22 Freq: Status: Active Protocol: Document 06/30/23 14:59 NM (Rec: 06/30/23 16:07 NM [id number]) Trunk Strength Trunk Manual Muscle Testing Comments 06/30/23: -Able to perform plank for 35 seconds without demonstrating instability or pain -Able to perform 5/5 abdominal /trunk flexion MMT PT-OP-T Assessment and Plan Start: 05/27/23 15:22 Freq: Status: Active Protocol: Document 07/24/23 07:36 NM (Rec: 07/24/23 07:55 NM [id number]) Physical Therapy Assessment Goals Four Impairment function, pain Impairment Pt reports he is unable to squat due to pain and symptom provocation Short Term Goal (STG) Pt will be able to squat at least 5 times with low back pain of 4/10 or less without compensations in order to demonstrate improved activity tolerance, symptom management, and ROM. STG Duration 4 weeks Usp Goal (LTG) Pt will be able to squat for at least 30 seconds with low back pain of 4/10 or less without compensations in order to demonstrate improved activity tolerance, symptom management, and ROM. 06/30/23: Pt able to squat for at least 30 seconds consecutively with 0/10 reported pain in low back or hips LTG Duration 8 weeks MET Three Impairment function, pain Impairment Oswestry score: 50 Short Term Goal (STG) Pt will improve Oswestry score by at least 4 points in order to demonstrate improved activity tolerance and pain management strategies. STG Duration 4 weeks Correction Officer Reformatory Goal (LTG) Pt will improve Oswestry score by at least 9 points (MCID) in order to demonstrates improved activity tolerance, pain management strategies, and quality of life. 06/30/23: MET 50 LTG Duration 8 weeks MET Two Impairment strength Impairment Pt unable to perform a standard or modified plank due to pain during back extension Short Term Goal (STG) Pt will be able to perform at least a modified plank for at least 15 seconds in order to demonstrate improved core strength, extension ROM, and activity tolerance. 06/16/23: GOAL MET fine 30SH off knees, 30 sec x2 off knees painfree but tiring. STG Duration 4 weeks GOAL MET 06/16/23 Usp Goal (LTG) Pt will be able to perform at least a modified plank for at least 45 seconds in order to demonstrate improved core strength, extension ROM, and activity tolerance. 06/30/23: Pt able to perform 35 sec plank without sway or low back pain LTG Duration 8 weeks NOT MET One Impairment ROM Impairment Lateral flexion (10 deg B) and extension (20deg) ROM limited Short Term Goal (STG) Pt will improve trunk lateral flexion and extension ROM by at least 5 degrees in order to show improved motion. STG Duration 4 weeks Correction Officer Reformatory Goal (LTG) Pt will improve lateral flexion and extension ROM by at least 5 degrees with pain of 2 or less in order to show improvements in motion, activity tolerance, and pain management. 06/30/23: Extension ROM 30 deg (10 deg increase) and B lateral flexion 20 deg ( increase from 10 deg) without reproducing lumbar pain LTG Duration 8 weeks MET Progress Towards Goals Progress Towards Goals Progressing Toward Goals,Slow Progress due to Activity Tolerance,Goals Met Progress Comments Met 3/4 LTG, met 4th STG Assessment Summary Assessment Pt has been seen in clinic x4 since IE in May 2023 for lumbar spine pain and sciatic symptoms. Pt canceled or no- showed 7 sessions. At last PN, pt met 3 out of 4 LTGs. He was progressing toward the last LTG and was able to hold a full plank for 35 seconds ( out of 45 sec) before demonstrating signs of core instability. He demonstrates improved trunk and core strength, in addition to improved lumbar spine ROM. At time of PN, pt was pain free for all lumbar spine movements . He demonstrates improved tolerance for lifting, bending , and squatting during exercise. He reports increased confidence in his ability to safely exercise without pain. Pt did not attend any scheduled sessions since 06/30. When PT spoke to pt on phone on 07/22/23 as POC was ending, pt reports that he continues to be pain free and reports that he is able to participate in all ADLs/IADLs/ work without limitation. Pt requests to be discharged from PT services to independent exercise as he has met most LTGs and has improved symptoms . PT agrees and instructed pt to follow up with PCP or seek a new referral if symptoms return or worsen. Physical Therapy Plan Frequency and Duration Frequency of Treatment 1x/Week Duration of treatment (weeks) 8 Plan of Care Start Date 05/27/23 Plan of Care End Date 07/22/23 Therapeutic Interventions Therapeutic Interventions Balance Training,Gait Training ,Home Exercise Program,Joint Mobilizations,Manual Therapy, Neuromuscular Re-education, Orthotic/Prosthetic Management ,Patient/Caregiver Education, Sensory Integration,Soft Tissue Mobilization, Therapeutic Activities, Therapeutic Exercises Modalities Biofeedback,Cold Pack/Ice Massage,Electric Stimulation, Hot Packs,Iontophoresis, Traction- Mechanical, Ultrasound Other Therapeutic Interventions Manual traction of lumbar spine and hips Other Referrals/Consults Referrals/Consults Recommended Discussed possibility of custom orthotics with pt regarding potential leg length discrepancy. Depending on pt progress and preference, will refer to appropriate provider. Discharge Physical Therapy Discharge Reasons No Longer Attending PT Discharge Comments Pt has met 3/4 LTG, and 4th STG. No longer having pain symptoms and requests to discharge from PT Next Visit Focus/Plan Next Note Type Discharge Summary Next Visit Plan Discharge from PT services
== END 2023-07-29 08:48 | disposition home or self-care (01) ==
LOC: PHYS 14:30
PROVIDERS: Family Provider Nurse Practitioner; PCP Nurse Practitioner; Referring Provider Nurse Practitioner; Visit Provider Nurse Practitioner
DX: M54.16 Radiculopathy, lumbar region (principal)
CPT/HCPCS: 97110; 97140; 97162; 97530

== ENCOUNTER 2024-08-19 16:06 | Emergency (ER) | payer OTHER, SELFPAY ==
[2024-08-19 16:29] VITALS: BP 127/72; PULSE 74; RESP 16; TEMP 37; O2SAT 96; BMI 41.5
--- NOTE | 2024-08-19 16:45 | ED_ITS ---
<Statement entered by Que Ortiz DO - 08/20/24 07:08> Dr. Ortiz: I was immediately available in the department for consultation. I did not actually see the patient. HPI - Dental/Oral General Chief complaint: Dental/Oral Stated complaint: sent by [facility] for fluids Time Seen by Provider: 08/19/24 16:45 History of Present Illness HPI Narrative: Mr. Fitzpatrick is a pleasant 44-year-old male with a past medical history prediabetes, hypertension, chronic poor dentition, on methadone who presents to the emergency department for right lower dental pain x 6 days. Patient developed pain on his right lower tooth on 08/13/2024 and went to the walk-in clinic and was diagnosed with a dental infection and was started on clindamycin 3 times a day since this has worked for him in the past. States that despite being on the antibiotic his right lower dental pain has continued to get worse and he feels like there might be a ?pocket? in his right lower jaw. He is also having occasional sweats and subjective fevers. Denies sore throat, cough, chest pain, shortness of breath, nausea, vomiting, diarrhea, abdominal pain, oropharyngeal swelling, trouble swallowing. The earliest dentist appointment he could get is 08/29. Related Data Home Medications Medication Instructions Recorded Confirmed propranolol 20 mg tablet 20 mg PO BID 04/15/24 04/15/24 metformin 1,000 mg tablet mg PO 08/13/24 08/13/24 Previous Rx's Medication Instructions Recorded clindamycin HCl 300 mg capsule 300 mg PO TID #30 caps 08/13/24 amoxicillin 875 mg-potassium 1 tab PO BID 10 days #20 tabs 08/19/24 clavulanate 125 mg tablet chlorhexidine gluconate 0.12 % 15 ml buccal DAILY #300 mL 08/19/24 mouthwash (Peridex) Allergies Allergy/AdvReac Type Severity Reaction Status Date / Time No Known Drug Allergies Allergy Verified 08/13/24 15:44 Review of Systems Review of Systems ROS Unobtainable: All systems reviewed & are unremarkable except as noted in HPI and below Patient History Medical History (Updated 08/19/24 @ 19:05 by Millicent Lopez PA-C) Low back pain Rodrigo's deformity Social History (Reviewed 08/19/24 @ 17:03 by MEHDI Caputo Smoking Status: Former smoker Smoking Status: Former smoker Exam Narrative Exam Narrative: GENERAL: 44 year old patient appears stated age. Obese patient, in no acute distress. HEAD: Atraumatic. Normocephalic. ENT: Chronically ill-appearing poor dentition with a few missing and chipped teeth. Patient's pain is primarily in the right lower buccal mucosa. There is no palpable abscess or fluctuance. He is also slightly tender on the outside of the right lower jaw. Nose without bleeding, purulent drainage. Throat with mild posterior orpharyngeal erythema, NO tonsillar hypertrophy or exudate. Airway patent. Floor of the mouth is soft. No submandibular swelling. NECK: Trachea midline. Cervical ROM intact. Small palpable right cervical lymphadenopathy. CARDIOVASCULAR: Regular rate and rhythm. RESPIRATORY: ?Nonlabored respirations. ?Speaking in clear, full sentences. ?Clear to auscultation. Breath sounds equal bilaterally. No wheezes, rales, or rhonchi. ? NEURO: AOx3. ?Clear speech. ?Moves all 4 extremities appropriately. SKIN: No rash or erythema of visible areas Initial Vital Signs Initial Vital Signs: Vital Signs Temperature 98.6 F 08/19/24 16:29 Pulse Rate 74 08/19/24 16:29 Respiratory Rate 16 08/19/24 16:29 Blood Pressure 127/72 08/19/24 16:29 Pulse Oximetry 96 08/19/24 16:29 Oxygen Delivery Method Room Air 08/19/24 16:29 Course Orders Ordered: ED Orders 08/19/24 17:25 BMP [Basic Metabolic Panel] Stat Urinalysis and Microscopic Stat 08/19/24 17:58 Covid-19 + FLU A/B + RSV - PCR Stat 08/19/24 18:00 CBC Auto Diff [Complete Blood Count AUTO DIFF] Stat Discontinued Medications Amoxicillin/Clavulanate Potassium (Amoxicillin/Clav 875/125 Mg) 1 tab PO NOW ONE Stop: 08/19/24 18:55 Last Admin: 08/19/24 19:46 Dose: 1 tab Sodium Chloride (Normal Saline 0.9%) 1,000 mls @ 1,000 mls/hr IV BOLUS ONE Stop: 08/19/24 17:59 Last Admin: 08/19/24 17:58 Dose: 1,000 mls/hr Documented By: RB Ketorolac Tromethamine (Ketorolac 30 Mg/Ml Vial) 15 mg IV NOW ONE Stop: 08/19/24 17:01 Last Admin: 08/19/24 17:56 Dose: 15 mg Documented By: RB Ondansetron HCl (Ondansetron 4 Mg/2 Ml Inj) 4 mg IV NOW ONE Stop: 08/19/24 17:01 Last Admin: 08/19/24 17:57 Dose: 4 mg Documented By: RB Propranolol HCl (Propranolol 10 Mg Tablet) 20 mg PO NOW ONE Stop: 08/19/24 18:55 Last Admin: 08/19/24 19:47 Dose: 20 mg Vital Signs Vital signs: Vital Signs - 8 hr 08/19/24 16:29 Temperature 98.6 F Pulse Rate 74 Respiratory Rate 16 Blood Pressure 127/72 Pulse Oximetry 96 Oxygen Delivery Method Room Air MDM - Dental/Oral Medical Records Attestation: I reviewed the patient's medical records. Lab Data 08/19/24 18:00 08/19/24 17:25 Labs: Lab Results 08/19/24 08/19/24 08/19/24 Range/Units 17:25 17:45 18:00 WBC 5.2 (4.5-11.0) X10^3/uL RBC 4.62 (4.5-5.9) X10^6/uL Hgb 14.0 (13.5-17.5) g/dL Hct 41.9 (41-53) % MCV 90.8 (80-100) fL MCH 30.3 (26-34) PG MCHC 33.4 (30-36) % RDW 13.3 (11.6-14.8) % Plt Count 148 L (150-400) X10^3/uL Neut % (Auto) 37.0 L (50-75) % Lymph % (Auto) 52.3 H (25-40) % [place] % (Auto) 7.4 (3-14) % Eos % (Auto) 2.4 (2-4) % Baso % (Auto) 0.9 (0-2) % Neut # (Auto) 1900 (7775-4119) /uL Lymph # (Auto) 2700 (0175-9475) /uL [place] # (Auto) 400 (0-900) /uL Eos # (Auto) 100 (0-450) /uL Baso # (Auto) 0 (0-100) /uL Sodium 140 (137-145) mmol/L Potassium 4.4 (3.4-5.1) mmol/L Chloride 107 (98-107) mmol/L Carbon Dioxide 21 L (22-32) mmol/L BUN 18 (9-20) mg/dL Creatinine 1.03 (0.66-1.25) mg/dL Estimated GFR > 60 (>60) mL/min BUN/Creatinine Ratio 17.5 (6-22) Glucose 117 H (70-100) mg/dL Calcium 9.2 (8.4-10.2) mg/dL Urine Color Yellow Urine Appearance Clear Urine pH 5.5 (4.5-8.0) Ur Specific [place] >=1.030 H (1.000-1.035) Urine Protein Trace H (Negative) Urine Glucose (UA) Negative (Negative) g/dL Urine Ketones Trace H (NEGATIVE) Urine Occult Blood Trace-intact (Negative) Urine Nitrate Negative (Negative) Urine Bilirubin Negative (NEGATIVE) Urine Urobilinogen 0.2 (0.2) E.U./dL Ur Leukocyte Esterase Negative (NEGATIVE) Urine RBC None seen (0-5/HPF) Urine WBC None seen (0-5/HPF) Ur Squamous Epith Cells None seen (0-5/HPF) Urine Bacteria None seen (None) Urine Mucus 1+ H (Negative) Ur Culture Indicated? Cult not indicated Vol Urine Centrifuged 10ml (spun) SARS-CoV-2 (PCR) Negative (Negative) Influenza A (RT-PCR) Flu a negative (NEGATIVE) Influenza B (RT-PCR) Flu b negative (NEGATIVE) RSV (PCR) Negative (Negative) MDM Narrative Medical decision making narrative: 44-year-old male with a past medical history prediabetes, hypertension, chronic poor dentition, on methadone who presents to the emergency department for right lower dental pain x 6 days. He has been on clindamycin since 08/13/2024. Differential diagnosis includes but is not limited to dental infection, periapical abscess, parotid gland abscess, parotitis, viral syndrome, etc. On exam patient is in no acute distress, nontoxic-appearing, all vital signs within normal limits. He does have some tenderness of the right lower buccal mucosa internally and externally over the jaw. No obvious abscess. No swelling of the oropharynx or neck. He has patient has been on clindamycin with no improvement, we will check CBC, BMP, treat with Toradol fluids and Zofran at this time. Based on vital signs no indication for sepsis order set at this time. Labs reveal normal WBC count 5.2 hemoglobin 14.0 hematocrit 41.9. Platelets are slightly low at 148, informed patient advised he follow up for recheck with the PCP. Normal BUN 18 creatinine 1.03. Glucose 117. UA with trace protein and ketones, no signs of infection. He is feeling better after ED treatment. He does take propranolol twice daily for anxiety and has missed his nighttime dose so that was given in the ED in addition we will switch patient from clindamycin to Augmentin b.i.d. times 10 days. Advised patient follow up with a dentist as soon as possible, we did discussed ED return precautions. Recommended prescribed Peridex mouthwash, ibuprofen/Tylenol for pain. Patient would like to be discharged prior to results of viral swab, he did consent to allowing me to leave a voicemail on his cell phone number on file with results. Patient verbalized understanding of all information is agreeable with the plan. He is stable for discharge home. Discharge Plan Departure Patient Disposition: Home Clinical Impression: Dental infection Instructions: DI for Dental Pain Activity Restrictions/Additional Instructions: Dear Mary Nanette, Today you were evaluated for right lower dental pain. Your physical exam does not show any abscess at this time. Your lab work was overall reassuring with a normal white blood cell count. Your platelets are slightly low and you should follow up with your primary care doctor for recheck of a complete blood cell count. Please STOP taking clindamycin and START taking the new antibiotic, Augmentin also known as amoxicillin-clavulanate. Please take a probiotic or increased probiotic yogurt in your diet while taking antibiotics. Please use ibuprofen and Tylenol for pain and follow up with a dentist as soon as possible. I have also sent a prescription for mouthwash to your pharmacy that you can use daily. Please take Ibuprofen (Motrin/Advil) or Acetaminophen (Tylenol) for pain. These are available over the counter. You may take Ibuprofen 600 mg every 8 hours with food for pain. You may also take Acetaminophen 650 mg every 4-6 hours for pain. Do not exceed 3000 mg of Tylenol a day as this can cause liver damage. Do not drink alcohol with either of these medications. Return to the emergency department immediately if you develop difficulty swallowing, increased swelling, severe pain fevers or any other concerns. Please follow up with your primary care doctor within the next 2-3 days for ER follow-up. (If you do not have a PCP you can call [phone]. ?to schedule an appointment with an [facility] Primary Care Provider) IF YOU DEVELOP ANY NEW OR WORSENING SYMPTOMS, RETURN TO THE ER! Please read the attached instructions, they highlight more specific treatments and interventions for you at home. Thank you for letting me participate in your care, Millicent Lopez PA-C Prescriptions: New chlorhexidine gluconate [Peridex] 0.12 % mouthwash 15 ml buccal DAILY Qty: 300 0RF amoxicillin-pot clavulanate 875-125 mg tablet 1 tab PO BID 10 Days Qty: 20 0RF No Action metformin 1,000 mg tablet PO clindamycin HCl 300 mg capsule 300 mg PO TID Qty: 30 0RF propranolol 20 mg tablet 20 mg PO BID Referrals: Kyler Sommer ARNP [Primary Care Provider] - Stand Alone Forms: Patient Portal/API/Survey
[2024-08-19] MEDS: KETOROLAC 30 MG/ML VIAL 15 MG IV (17:56)
[2024-08-19] MEDS: ONDANSETRON 4 MG/2 ML INJ IV (17:57)
[2024-08-19] MEDS: SODIUM CHLORIDE 0.9% 1,000 ML 1000 ML IV (17:58)
[2024-08-19 18:03] LABS: Appearance Urine UA CLEAR; Bilirubin Urine UA NEGATIVE (NEGATIVE); Color Urine UA YELLOW; Glucose Urine UA NEGATIVE (Negative); Ketones Urine UA TRACE (NEGATIVE); Leukocyte Esterase Urine UA NEGATIVE (NEGATIVE); Nitrite Urine UA NEGATIVE (Negative); Occult Blood Urine UA TRACE-INTACT (Negative); Protein Urine UA TRACE (Negative); Specific Gravity Urine UA >=1.030 (1.000-1.035); Urobilinogen Urine UA 0.2 E.U./dL (0.2); pH Urine UA 5.5 (4.5-8.0)
[2024-08-19 18:15] LABS: BUN Creatinine Ratio 17.5 (6-22); Blood Urea Nitrogen 18 mg/dL (9-20); Calcium 9.2 mg/dL (8.4-10.2); Carbon Dioxide 21 mmol/L (22-32); Chloride 107 mmol/L (98-107); Estimated Glomerular Filt Rate > 60 mL/min (>60); Glucose 117 mg/dL (70-100); HEMOLYSIS 27 (0-50); Potassium 4.4 mmol/L (3.4-5.1); Sodium 140 mmol/L (137-145)
[2024-08-19 18:24] LABS: Bacteria Urine None Seen; RBC Urine None Seen (0-5/HPF); Squamous Epithelial Cell Urine None Seen (0-5/HPF); Urine Volume 10mL (spun); WBC Urine None Seen (0-5/HPF)
[2024-08-19 18:25] LABS: Culture Indicated Urine Cult Not Indicated; Mucus Urine 1+ (Negative)
[2024-08-19 18:39] LABS: Add Manual Diff / Slide Review NO; Basophils Absolute Auto 0 /uL (0-100); Basophils Percent Auto 0.9 % (0-2); Eosinophils Absolute Auto 100 /uL (0-450); Eosinophils Percent Auto 2.4 % (2-4); Hematocrit 41.9 % (41-53); Lymphocytes Absolute Auto 2700 /uL (1100-4500); Lymphocytes Percent Auto 52.3 % (25-40); Mean Corpuscular HGB Conc 33.4 % (30-36); Mean Corpuscular Hemoglobin 30.3 PG (26-34); Mean Corpuscular Volume 90.8 fL (80-100); Monocytes Absolute Auto 400 /uL (0-900); Monocytes Percent Auto 7.4 % (3-14); Neutrophils Absolute Auto 1900 /uL (1500-7000); Platelet Count 148 X10^3/uL (150-400); Red Blood Cell Count 4.62 X10^6/uL (4.5-5.9); Red Cell Distribution Width 13.3 % (11.6-14.8); White Blood Cell Count 5.2 X10^3/uL (4.5-11.0)
[2024-08-19] MEDS: AMOXICILLIN/CLAV 875/125 MG 1 TAB PO (19:46)
[2024-08-19] MEDS: PROPRANOLOL 10 MG TABLET 20 MG PO (19:47)
[2024-08-19 19:56] LABS: Influenza A - CEPHEID Flu A NEGATIVE (NEGATIVE); Influenza B - CEPHEID Flu B NEGATIVE (NEGATIVE); Respiratory Syncytial Virus Negative (Negative)
[2024-08-19 19:57] LABS: COVID-19 CEPHEID 4-PLEX PCR Negative (Negative)
[2024-08-19 20:08] VITALS: BP 143/74; PULSE 73; RESP 12; TEMP 36.7; O2SAT 97
== END 2024-08-19 20:12 | disposition home or self-care (01) ==
PROVIDERS: Emergency Provider Physician Assistant; Family Provider Nurse Practitioner; PCP Nurse Practitioner
DX: K04.7 Periapical abscess without sinus (principal); F41.9 Anxiety disorder, unspecified; R73.03 Prediabetes; R50.9 Fever, unspecified; I10 Essential (primary) hypertension; Z87.891 Personal history of nicotine dependence
CPT/HCPCS: 87635; 87400 ×2; 87420; 0241U; 36415; 80048; 81001; 85025; 96361; 96374; 96375; 99284; J1885; J2405

== ENCOUNTER 2025-01-04 11:36 | Emergency (ER) | payer OTHER, SELFPAY ==
[2025-01-04 12:11] VITALS: BP 157/85; PULSE 68; RESP 20; TEMP 36.3; O2SAT 99; BMI 29.8
--- NOTE | 2025-01-04 12:23 | ED_ITS ---
<Statement entered by Valdo Sprague, DO - 01/04/25 19:34> Dr. Celestine franklin statement: I was available for consultation during this patient's emergency department visit. This chart is signed by myself for administrative purposes only. I do not have direct contact with this patient during the visit. They were seen by the APC independently. HPI - Recheck/Abnormal Lab/Rx General Chief Complaint: Recheck/Abnormal Lab/Rx Stated Complaint: Needs Methadone treatment Time Seen by Provider: 01/04/25 12:18 Source: patient Mode of arrival: Ambulatory History of Present Illness HPI narrative: Avtar Fitzpatrick is a pleasant 44-year-old male with a past medical history of hypertension, prediabetes, chronic pain on methadone who presents to the emergency department for missed methadone dose, 120mg. Patient went to [facility] this morning to get his normal daily 120mg methadone dose however the clinic had closed early for the January 05 holiday which he was unaware of. They will also be closed tomorrow. He is now beginning to feel anxious, nauseous and sweaty since missing his dose this morning. I did call the clinic and confirmed his dose of 120mg, last received yesterday 01/03/25. He has no other concerns. He is here with is girlfriend, Cary. Related Data Home Medications ?Medication ?Instructions ?Recorded ?Confirmed propranolol 20 mg tablet 20 mg PO BID 04/15/24 metformin 1,000 mg tablet mg PO 08/13/24 08/13/24 Previous Rx's ?Medication ?Instructions ?Recorded clindamycin HCl 300 mg capsule 300 mg PO TID #30 caps 08/13/24 chlorhexidine gluconate 0.12 % 15 ml buccal DAILY #300 mL 08/19/24 mouthwash (Peridex) Allergies Allergy/AdvReac Type Severity Reaction Status Date / Time No Known Drug Allergies Allergy Verified 01/04/25 12:11 Review of Systems Review of Systems ROS Unobtainable: All systems reviewed & are unremarkable except as noted in HPI and below Patient History Medical History (Updated 01/04/25 @ 12:39 by Millicent Lopez PA-C) Low back pain Rodrigo's deformity Smoking Status: Never smoker Exam Narrative Exam Narrative: GENERAL: 44 year old patient appears stated age. Well-developed patient, in no acute distress. HEAD: Atraumatic. Normocephalic. EYES: Extraocular motions intact. No scleral icterus. No injection or drainage. ENT: Nose without bleeding, purulent drainage. NECK: Trachea midline. Cervical ROM intact. CARDIOVASCULAR: Regular rate RESPIRATORY: ?Nonlabored respirations. ?Speaking in clear, full sentences. NEURO: AOx3. ?Clear speech. ?Moves all 4 extremities appropriately. SKIN: No rash or erythema of visible areas. Initial Vital Signs Initial Vital Signs: Vital Signs Temperature 97.4 F L 01/04/25 12:11 Pulse Rate 68 01/04/25 12:11 Respiratory Rate 20 01/04/25 12:11 Blood Pressure 157/85 H 01/04/25 12:11 Pulse Oximetry 99 01/04/25 12:11 Oxygen Delivery Method Room Air 01/04/25 12:11 Course Orders Ordered: Discontinued Medications Methadone HCl (Methadone Intensol 10 Mg/Ml Oral.Conc) 120 mg PO NOW ONE Stop: 01/04/25 12:28 Last Admin: 01/04/25 12:39 Dose: 120 mg Vital Signs Vital signs: Vital Signs - 8 hr 01/04/25 12:11 Temperature 97.4 F L Pulse Rate 68 Respiratory Rate 20 Blood Pressure 157/85 H Pulse Oximetry 99 Oxygen Delivery Method Room Air MDM - Recheck/Abnormal Lab/Rx Medical Records Attestation: I reviewed the patient's medical records. [facility] Narrative Medical decision making narrative: 44-year-old male with a past medical history of hypertension, prediabetes, ch ronic pain on methadone who presents to the emergency department for missed methadone dose, 120mg. Differential diagnosis includes but isn't limited to missed medication dose, withdrawal, etc. On exam patient is in no acute distress, nontoxic appearing, vital signs within normal limits. He typically takes 120 mg of methadone every morning however he missed this morning's dose due to the clinic closing early. They will also be closed tomorrow. I called and spoke with after-hours sales training representative for [facility], , who confirmed that patient typically gets 120 mg of methadone once daily, he was unable to get his dose today, his last dose was yesterday morning. They confirmed that clinic we will also be closed tomorrow so patient will need an additional dose tomorrow. 120 mg methadone ordered in the ED. Discussed ED return precautions. Patient verbalized understanding of all information is agreeable with the plan. He is stable for discharge home. Discharge Plan Departure Patient Disposition: Home Clinical Impression: Methadone use, Medication dose missed Activity Restrictions/Additional Instructions: Dear Mr. Fitzpatrick, Thank you for coming to the emergency department. Today you were evaluated for a missed methadone dose. The ER is not always able to refill this medication, however we were able to give you your 120mg dose today. Please follow up with your primary care doctor as needed, return to the ED for any new or worsening symptoms or other concerns. Please follow up with your primary care doctor within the next 2-3 days for ER follow-up. (If you do not have a PCP you can call [phone]. ?to schedule an appointment with an [facility] Primary Care Provider) IF YOU DEVELOP ANY NEW OR WORSENING SYMPTOMS, RETURN TO THE ER! Please read the attached instructions, they highlight more specific treatments and interventions for you at home. Thank you for letting me participate in your care, Millicent Lopez PA-C Prescriptions: No Action metformin 1,000 mg tablet PO clindamycin HCl 300 mg capsule 300 mg PO TID Qty: 30 0RF propranolol 20 mg tablet 20 mg PO BID chlorhexidine gluconate [Peridex] 0.12 % mouthwash 15 ml buccal DAILY Qty: 300 0RF Referrals: Kyler Sommer ARNP [Primary Care Provider, Nursing] Stand Alone Forms: Patient Portal/API
[2025-01-04] MEDS: METHADONE INTENSOL 10 MG/ML ORAL.CONC 120 MG PO (12:39)
== END 2025-01-04 12:45 | disposition home or self-care (01) ==
PROVIDERS: Emergency Provider Physician Assistant; Family Provider Nurse Practitioner; PCP Nurse Practitioner
DX: F11.90 Opioid use, unspecified, uncomplicated (principal); Z91.138 Patient's unintentional underdosing of medication regimen for other reason
CPT/HCPCS: 99283

== ENCOUNTER 2025-01-05 12:34 | Emergency (ER) | payer OTHER, SELFPAY ==
[2025-01-05 12:39] VITALS: BP 171/75; PULSE 89; RESP 14; TEMP 37.1; O2SAT 96; BMI 40.1
--- NOTE | 2025-01-05 12:57 | ED_ITS ---
<Statement entered by Valdo Sprague, DO - 01/06/25 07:10> Co-sign statement: I was available for consultation during this patient's emergency department visit. This chart is signed by myself for administrative purposes only. I do not have direct contact with this patient during this visit. They were seen by the APC independently. HPI - Recheck/Abnormal Lab/Rx General Chief Complaint: Recheck/Abnormal Lab/Rx Stated Complaint: Needs Methadone Treatment Time Seen by Provider: 01/05/25 12:47 Source: patient Mode of arrival: Ambulatory History of Present Illness HPI narrative: Avtar Fitzpatrick is a pleasant 44-year-old male with a past medical history of hypertension, prediabetes, chronic pain on methadone who presents to the emergency department for missed methadone dose, 120mg. I saw the patient yesterday and spoke with his dispensing clinic, [facility], and confirmed his 120 mg dose and that he was unable to receive this dose yesterday and today due to holiday closure. Patient presents today for his 2nd missed dose, he has no other concerns or complaints, he will be able to get his normal dose at the clinic tomorrow. Related Data Home Medications ?Medication ?Instructions ?Recorded ?Confirmed propranolol 20 mg tablet 20 mg PO BID 04/15/24 metformin 1,000 mg tablet mg PO 08/13/24 08/13/24 Previous Rx's ?Medication ?Instructions ?Recorded clindamycin HCl 300 mg capsule 300 mg PO TID #30 caps 08/13/24 chlorhexidine gluconate 0.12 % 15 ml buccal DAILY #300 mL 08/19/24 mouthwash (Peridex) Allergies Allergy/AdvReac Type Severity Reaction Status Date / Time No Known Drug Allergies Allergy Verified 01/05/25 12:42 Review of Systems Review of Systems ROS Unobtainable: All systems reviewed & are unremarkable except as noted in HPI and below Patient History Medical History Low back pain Rodrigo's deformity Social History Smoking Status: Unknown if ever smoked Smoking Status: Unknown if ever smoked Exam Narrative Exam Narrative: GENERAL: 44 year old patient appears stated age. Well-developed patient, in no acute distress. HEAD: Atraumatic. Normocephalic. CARDIOVASCULAR: Regular rate RESPIRATORY: ?Nonlabored respirations. ?Speaking in clear, full sentences. ? NEURO: AOx3. ?Clear speech. ?Moves all 4 extremities appropriately. SKIN: No rash or erythema of visible areas Initial Vital Signs Initial Vital Signs: Vital Signs Temperature 98.7 F 01/05/25 12:39 Pulse Rate 89 01/05/25 12:39 Respiratory Rate 14 01/05/25 12:39 Blood Pressure 171/75 H 01/05/25 12:39 Pulse Oximetry 96 01/05/25 12:39 Oxygen Delivery Method Room Air 01/05/25 12:39 Course Orders Ordered: Discontinued Medications Methadone HCl (Methadone Intensol 10 Mg/Ml Oral.Conc) 120 mg PO NOW ONE Stop: 01/05/25 12:58 Last Admin: 01/05/25 13:24 Dose: Not Given Documented By: ASHOK Methadone HCl (Methadone 10 Mg Tablet) 120 mg PO NOW ONE Stop: 01/05/25 13:22 Last Admin: 01/05/25 13:23 Dose: 120 mg Documented By: ASHOK Vital Signs Vital signs: Vital Signs - 8 hr 01/05/25 12:39 01/05/25 13:45 Temperature 98.7 F Pulse Rate 89 75 Respiratory Rate 14 16 Blood Pressure 171/75 H 159/82 H Pulse Oximetry 96 95 Oxygen Delivery Method Room Air Room Air MDM - Recheck/Abnormal Lab/Rx Medical Records Attestation: I reviewed the patient's medical records. MDM Narrative Medical decision making narrative: 44-year-old male with a past medical history of hypertension, prediabetes, chronic pain on methadone who presents to the emergency department for missed methadone dose, 120mg. I saw the patient yesterday and spoke with his [facility] clinic, [facility], and confirmed his 120 mg dose and that he was unable to receive this dose yesterday and today due to holiday closure. Patient provided with 120 mg dose of methadone. Advised follow up with the clinic tomorrow. Discussed ED return precautions. He is stable for discharge home. Discharge Plan Departure Patient Disposition: Home Clinical Impression: Methadone use, Medication dose missed Activity Restrictions/Additional Instructions: Dear Nanette, Today we refilled your missed 120 mg methadone dose. Please follow up with your methadone clinic tomorrow as scheduled. Return to the ER with any new or worsening symptoms or concerns, and follow up with the primary care doctor Please follow up with your primary care doctor within the next 2-3 days for ER follow-up. (If you do not have a PCP you can call [phone]. ?to schedule an appointment with an [facility] Primary Care Provider) IF YOU DEVELOP ANY NEW OR WORSENING SYMPTOMS, RETURN TO THE ER! Please read the attached instructions, they highlight more specific treatments and interventions for you at home. Thank you for letting me participate in your care, Millicent Lopez PA-C Prescriptions: No Action metformin 1,000 mg tablet PO clindamycin HCl 300 mg capsule 300 mg PO TID Qty: 30 0RF propranolol 20 mg tablet 20 mg PO BID chlorhexidine gluconate [Peridex] 0.12 % mouthwash 15 ml buccal DAILY Qty: 300 0RF Referrals: Kyler Sommer ARNP [Primary Care Provider, Nursing] Stand Alone Forms: Patient Portal/API
[2025-01-05] MEDS: METHADONE 10 MG TABLET 120 MG PO (13:23)
[2025-01-05 13:45] VITALS: BP 159/82; PULSE 75; RESP 16; O2SAT 95
== END 2025-01-05 13:46 | disposition home or self-care (01) ==
LOC: ED 13:09
PROVIDERS: Emergency Provider Physician Assistant; Family Provider Nurse Practitioner; PCP Nurse Practitioner
DX: Z76.0 Encounter for issue of repeat prescription (principal); F11.90 Opioid use, unspecified, uncomplicated
CPT/HCPCS: 99283

== ENCOUNTER 2025-04-25 13:24 | Emergency (ER) | payer OTHER, SELFPAY ==
[2025-04-25 13:33] VITALS: BP 154/90; PULSE 80; RESP 16; TEMP 37.3; O2SAT 98; BMI 39.7
--- NOTE | 2025-04-25 13:53 | DI.RAD.S_ITS ---
PROCEDURE: XR CHEST 2V INDICATIONS: SOB TECHNIQUE: 2 views of the chest were acquired. COMPARISON: None. FINDINGS: Surgical changes and devices: None. Lungs and pleura: Lungs are clear. No pleural effusions or pneumothorax. Mediastinum: Mediastinal contours are normal. Heart size is normal. Bones and chest wall: No suspicious bony abnormalities. Soft tissues appear unremarkable. IMPRESSION: No acute pulmonary process. Dictated by: Laura Steward M.D. on 04/25/2025 at 14:13 Approved by: Laura Steward M.D. on 04/25/2025 at 14:14
[2025-04-25 14:20] LABS: Influenza A - CEPHEID Flu A NEGATIVE (NEGATIVE); Influenza B - CEPHEID Flu B NEGATIVE (NEGATIVE)
[2025-04-25 14:38] LABS: COVID-19 CEPHEID 4-PLEX PCR Negative (Negative)
--- NOTE | 2025-04-25 15:07 | ED.SOB ---
HPI - SOB/Dyspnea General Chief Complaint: Shortness of Breath/Dyspnea Stated Complaint: SOB, Getting tired easy Time Seen by Provider: 04/25/25 13:52 Source: patient Mode of arrival: Ambulatory Limitations: no limitations History of Present Illness HPI Narrative: 44-year-old male patient with a history of hypertension, prediabetes, chronic pain on methadone who presents with dyspnea on exertion off and on for 3 weeks with no chest pain, fever, cough. He also noted his blood pressure was elevated yesterday. Patient admits to feeling anxiety and stress suspicious since he has been trying to taper off his methadone. He has no history of depression and PTSD and has not been formally treated for anxiety in the past. He has also had a slight amount of pressure or tightness in his chest along with the shortness of breath over the last couple of weeks. Related Data Home Medications ?Medication ?Instructions ?Recorded ?Confirmed propranolol 20 mg tablet 20 mg PO BID 04/15/24 04/15/24 metformin 1,000 mg tablet mg PO 08/13/24 08/13/24 Previous Rx's ?Medication ?Instructions ?Recorded clindamycin HCl 300 mg capsule 300 mg PO TID #30 caps 08/13/24 chlorhexidine gluconate 0.12 % 15 ml buccal DAILY #300 mL 08/19/24 mouthwash (Peridex) Allergies Allergy/AdvReac Type Severity Reaction Status Date / Time No Known Drug Allergies Allergy Verified 04/25/25 13:34 Review of Systems Review of Systems ROS Unobtainable: All systems reviewed & are unremarkable except as noted in HPI and below Cardiovascular Cardiovascular: Reports as per HPI Respiratory Respiratory: Reports as per HPI Psychiatric Psychiatric: Reports as per HPI Patient History Medical History (Updated 04/25/25 @ 17:41 by Flavio Royal MD) Low back pain Rodrigo's deformity Social History Smoking Status: Former smoker Smoking Status: Former smoker Exam Narrative Exam Narrative: General: Alert and conversant. No distress. Mildly anxious. Appears well nourished and well hydrated Neck: No tenderness or adenopathy. No meningismus. No JVD Lungs: Clear to auscultation with good air movement. No wheezing, rales or rhonchi. No respiratory distress Cardiac: Regular rate and rhythm with no appreciable murmur or gallop Abdomen: Soft, nontender with no distention or masses. Normal bowel sounds. No rebound or guarding Musculoskeletal: Exam of the extremities, axial spine and ribcage reveals no deformity, bony tenderness or swelling. Range of motion intact Neuro: Alert and oriented. Cranial nerves, motor, sensory and cerebellar all grossly intact. No focal deficit Skin: Warm and normal color. No rashes Psychological: Normal affect and interaction. No evidence of delusion or psychosis. Normal mood. Initial Vital Signs Initial Vital Signs: Vital Signs Temperature 99.1 F 04/25/25 13:33 Pulse Rate 80 04/25/25 13:33 Respiratory Rate 16 04/25/25 13:33 Blood Pressure 154/90 H 04/25/25 13:33 Pulse Oximetry 98 04/25/25 13:33 Oxygen Delivery Method Room Air 04/25/25 13:33 Course Course Course Narrative: 17:25 Symptoms improved with lorazepam, 1 mg p.o.. Lab work, chest x-ray and EKG all unremarkable and reassuring. Orders Ordered: ED Orders 04/25/25 13:53 XR chest 2V Stat 04/25/25 15:19 EKG-12 Lead Stat 04/25/25 15:26 CBC Auto Diff [Complete Blood Count AUTO DIFF] Stat CMP [Comprehensive Metabolic Panel] Stat Trop I [Troponin I] Stat Discontinued Medications Lorazepam (Lorazepam 0.5 Mg Tablet) 1 mg PO NOW ONE Stop: 04/25/25 15:18 Last Admin: 04/25/25 16:11 Dose: 1 mg Documented By: DOMINIQUE Vital Signs Vital signs: Vital Signs - 8 hr 04/25/25 17:58 Pulse Rate 86 Respiratory Rate 17 Blood Pressure 159/94 H Pulse Oximetry 98 Oxygen Delivery Method Room Air MDM - SOB/Dyspnea Medical Records Attestation: I reviewed the patient's medical records. Lab Data Attestation: I reviewed the patient's lab results. Lab results narrative: CBC, CMP and troponin unremarkable 04/25/25 15:26 04/25/25 15:26 Labs: Lab Results 04/25/25 04/25/25 Range/Units 13:37 15: WBC 6.3 (4.5-11.0) X10^3/uL RBC 5.04 (4.5-5.9) X10^6/uL Hgb 15.3 (13.5-17.5) g/dL Hct 45.3 (41-53) % MCV 89.8 (80-100) fL MCH 30.3 (26-34) PG MCHC 33.8 (30-36) % RDW 13.9 (11.6-14.8) % Plt Count 174 (150-400) X10^3/uL Neut % (Auto) 56.2 (50-75) % Lymph % (Auto) 37.0 (25-40) % Stewart % (Auto) 5.0 (3-14) % Eos % (Auto) 1.2 L (2-4) % Baso % (Auto) 0.6 (0-2) % Neut # (Auto) 3600 (3780-3952) /uL Lymph # (Auto) 2300 (7446-9442) /uL Stewart # (Auto) 300 (0-900) /uL Eos # (Auto) 100 (0-450) /uL Baso # (Auto) 0 (0-100) /uL Sodium 140 (137-145) mmol/L Potassium 4.0 (3.4-5.1) mmol/L Chloride 103 (98-107) mmol/L Carbon Dioxide 27 (22-32) mmol/L BUN 13 (9-20) mg/dL Creatinine 0.74 (0.66-1.25) mg/dL Estimated GFR > 60 (>60) mL/min BUN/Creatinine Ratio 17.6 (6-22) Glucose 151 H (70-99) mg/dL Calcium 9.3 (8.4-10.2) mg/dL Total Bilirubin 0.5 (0.2-1.3) mg/dL AST 31 (17-59) IU/L ALT 41 (<50) IU/L Alkaline Phosphatase 71 (38-126) U/L Troponin I < 0.012 (0.01-0.034) ng/mL Total Protein 7.9 (6.3-8.2) g/dL Albumin 4.8 (3.5-5.0) g/dL Globulin 3.1 (1.7-4.1) g/dL Albumin/Globulin Ratio 1.5 (1.0-2.8) SARS-CoV-2 (PCR) Negative (Negative) Influenza A (RT-PCR) Flu a negative (NEGATIVE) Influenza B (RT-PCR) Flu b negative (NEGATIVE) RSV (PCR) Negative (Negative) Imaging Data Chest x-ray: Attestation: I personally reviewed and interpreted this imaging study as follows: My Impression: No acute disease. ECG Data Attestation: I personally reviewed and interpreted this ECG as follows: (Sinus rhythm. Borderline LVH. Otherwise normal axis and intervals and no ischemic changes.) MDM Narrative Medical decision making narrative: Patient had intermittent shortness of breath and chest discomfort associated with stress and anxiety. I believe that is the cause of his symptoms. He is physical exam, EKG, chest x-ray and troponin levels are all unremarkable and reassuring. Patient given instructions on managing stress and anxiety and monitoring symptoms. Follow up with primary care. Return to the ER if worse Discharge Plan Departure Patient Disposition: Home Clinical Impression: Exertional shortness of breath, Anxiety Instructions: DI for Anxiety -- Adult, DI for Shortness of Breath Activity Restrictions/Additional Instructions: Assessment: Shortness of breath and chest tightness associated with anxiety. ER testing is negative and reassuring. Does not appear to be cardiac or pulmonary. Plan: Stress reduction and anxiety reduction. Monitor symptoms and follow up with your doctor. Prescriptions: No Action metformin 1,000 mg tablet PO clindamycin HCl 300 mg capsule 300 mg PO TID Qty: 30 0RF propranolol 20 mg tablet 20 mg PO BID chlorhexidine gluconate [Peridex] 0.12 % mouthwash 15 ml buccal DAILY Qty: 300 0RF Stand Alone Forms: Patient Portal/API
--- NOTE | 2025-04-25 15:19 | EKG_ITS ---
[address] [address] Test Date: 2025-04-25 Pat Name: Avtar Fitzpatrick Department: Room: Gender: Male Chute Tender: JEANNIE : 1980 Requested By: Order Number: [id number] Reading MD: Chris Ronquillo Measurements Intervals [place] Rate: 84 P: 15 GA: 182 QRS: -18 QRSD: 86 T: 1 QT: 358 QTc: 423 Interpretive Statements Normal sinus rhythm Minimal voltage criteria for LVH, may be normal variant ( R in aVL ) Electronically Signed On 04-26-2025 10:31:54 PDT by Chris Ronquillo
[2025-04-25 15:36] LABS: Add Manual Diff / Slide Review NO; Hematocrit 45.3 % (41-53); Hemoglobin 15.3 g/dL (13.5-17.5); Lymphocytes Absolute Auto 2300 /uL (1100-4500); Mean Corpuscular HGB Conc 33.8 % (30-36); Mean Corpuscular Hemoglobin 30.3 PG (26-34); Mean Corpuscular Volume 89.8 fL (80-100); Platelet Count 174 X10^3/uL (150-400)
[2025-04-25 15:51] LABS: Alanine Aminotransferase 41 IU/L (<50); Albumin 4.8 g/dL (3.5-5.0); Albumin Globulin Ratio 1.5 (1.0-2.8); Alkaline Phosphatase 71 U/L (38-126); Blood Urea Nitrogen 13 mg/dL (9-20); Calcium 9.3 mg/dL (8.4-10.2); Carbon Dioxide 27 mmol/L (22-32); Chloride 103 mmol/L (98-107); Estimated Glomerular Filt Rate > 60 mL/min (>60); Globulin 3.1 g/dL (1.7-4.1); Glucose 151 mg/dL (70-99); HEMOLYSIS 18 (0-50); Potassium 4.0 mmol/L (3.4-5.1); Sodium 140 mmol/L (137-145); Total Protein 7.9 g/dL (6.3-8.2)
[2025-04-25 16:02] LABS: Troponin I < 0.012 ng/mL (0.01-0.034)
[2025-04-25 17:58] VITALS: BP 159/94; PULSE 86; RESP 17; O2SAT 98
== END 2025-04-25 18:00 | disposition home or self-care (01) ==
PROVIDERS: Family Medicine; Emergency Provider Emergency Medicine; Family Provider Nurse Practitioner
DX: R06.02 Shortness of breath (principal); I10 Essential (primary) hypertension; F41.9 Anxiety disorder, unspecified
CPT/HCPCS: 71046; 80053; 84484; 85025; 87637; 93005; 99283; 99284

== ENCOUNTER 2025-05-04 19:32 | Emergency (ER) | payer OTHER, SELFPAY ==
--- NOTE | 2025-05-04 19:39 | EKG_ITS ---
[place] [id number] [place] [id number] Test Date: 2025-05-04 Pat Name: Avtar Fitzpatrick Department: [facility] Room: Gender: Male [employer] Operations Man: NOEL DE LA ROSA : 1980 Requested By: Order Number: [id number] Reading MD: Valdo Cooney MD Measurements Intervals [place] Rate: 79 P: -7 CO: 172 QRS: -20 QRSD: 94 T: 9 QT: 368 QTc: 421 Interpretive Statements Normal sinus rhythm with sinus arrhythmia Incomplete right bundle branch block Minimal voltage criteria for LVH, may be normal variant ( R in aVL ) NO SIGNIFICANT CHANGE FROM PRIOR TRACING Electronically Signed On 05-05-2025 7:20:36 PDT by Valdo Cooney MD
[2025-05-04 19:40] VITALS: BP 130/99; PULSE 78; RESP 18; TEMP 36.9; O2SAT 98; BMI 38.0
--- NOTE | 2025-05-04 20:16 | DI.RAD.S_ITS ---
PROCEDURE: XR CHEST 1V INDICATIONS: chest pain TECHNIQUE: One view of the chest was acquired. COMPARISON: [facility], CR, XR CHEST 2V, 04/25/2025, 13:55. FINDINGS: Surgical changes and devices: None. Lungs and pleura: Lungs are clear. No pleural effusions or pneumothorax. Mediastinum: Mediastinal contours appear normal. Heart size is normal. Bones and chest wall: No suspicious bony lesions. Overlying soft tissues appear unremarkable. IMPRESSION: No acute cardiopulmonary abnormality is seen. Dictated by: Kermit Cordova M.D. on 05/04/2025 at 20:33 Approved by: Kermit Cordova M.D. on 05/04/2025 at 20:33
--- NOTE | 2025-05-04 20:30 | PC.NURSE ---
Pt ambulatory to imaging with document imaging manager
[2025-05-04 21:30] LABS: Alanine Aminotransferase 46 IU/L (<50); Albumin 5.2 g/dL (3.5-5.0); Albumin Globulin Ratio 1.5 (1.0-2.8); Alkaline Phosphatase 47 U/L (38-126); Blood Urea Nitrogen 17 mg/dL (9-20); Calcium 9.6 mg/dL (8.4-10.2); Carbon Dioxide 27 mmol/L (22-32); Chloride 99 mmol/L (98-107); Estimated Glomerular Filt Rate > 60 mL/min (>60); Globulin 3.4 g/dL (1.7-4.1); Glucose 103 mg/dL (70-99); Lipase 117 U/L (23-300); Magnesium 1.8 mg/dL (1.6-2.3); Potassium 5.2 mmol/L (3.4-5.1); Sodium 135 mmol/L (137-145); Total Protein 8.6 g/dL (6.3-8.2)
[2025-05-04 21:31] LABS: HEMOLYSIS 193 (0-50)
[2025-05-04 21:42] LABS: NT-proBNP (BNP-Adult 18+) < 20 pg/mL (<125); Troponin I 0.020 ng/mL (0.01-0.034)
[2025-05-04 23:54] VITALS: BP 127/80; PULSE 80; RESP 17; O2SAT 97
[2025-05-05 00:11] LABS: Add Manual Diff / Slide Review NO; Hematocrit 43.3 % (41-53); Hemoglobin 14.7 g/dL (13.5-17.5); Lymphocytes Absolute Auto 2700 /uL (1100-4500); Mean Corpuscular HGB Conc 33.9 % (30-36); Mean Corpuscular Hemoglobin 30.2 PG (26-34); Mean Corpuscular Volume 88.9 fL (80-100); Platelet Count 140 X10^3/uL (150-400)
[2025-05-05 00:46] VITALS: PULSE 79; O2SAT 96
[2025-05-05 01:04] VITALS: BP 120/62; PULSE 71; RESP 21; O2SAT 98
--- NOTE | 2025-05-05 01:12 | ED.GENADULT ---
HPI - General Adult General Chief complaint: Hypertension Stated complaint: chest pain, off/on 1 week. High BP Time Seen by Provider: 05/04/25 20:16 Source: patient, RN notes reviewed and old records reviewed Mode of arrival: Ambulatory Limitations: no limitations History of Present Illness HPI narrative: 44-year-old male with history of hypertension, diabetes on methadone presents with complaint of elevated blood pressure he states he had pressures of 150s at home over the last several days had lisinopril initiated in the last several days but states it he thinks it is making him have ringing in his ears. He complains of ringing in his ears gas and bloating he has had some substernal chest pain little bit to the left side he states it is worse when he eats. Patient states he had some licorice tonight which made him feel very unwell he forced himself to vomit. He denies any diaphoresis. Denies any new shortness of breath. He states he has been constipated. Denies any dysuria urgency or frequency. No new swelling of extremities. States that the chest Tums comfort stays in the substernal left side of the chest he denies radiation elsewhere. States he was seen last week for similar symptoms has follow up with primary care but will not see them for another week. He states he takes medication for hypertension including propranolol, just recently started lisinopril and has been on metformin and takes methadone daily. Also notes that he takes Pepcid daily. He does use tobacco patches, no alcohol no other recreational drugs. He denies any known cardiac issues no prior surgeries. Related Data Home Medications ?Medication ?Instructions ?Recorded ?Confirmed propranolol 20 mg tablet 20 mg PO BID 04/15/24 04/15/24 metformin 1,000 mg tablet mg PO 08/13/24 08/13/24 Previous Rx's ?Medication ?Instructions ?Recorded clindamycin HCl 300 mg capsule 300 mg PO TID #30 caps 08/13/24 chlorhexidine gluconate 0.12 % 15 ml buccal DAILY #300 mL 08/19/24 mouthwash (Peridex) Allergies Allergy/AdvReac Type Severity Reaction Status Date / Time No Known Drug Allergies Allergy Verified 05/04/25 19:40 Review of Systems Review of Systems ROS Unobtainable: All systems reviewed & are unremarkable except as noted in HPI and below Patient History Medical History (Updated 05/05/25 @ 02:47 by Comfort Yates DO) Low back pain Rodrigo's deformity Social History Smoking Status: Former smoker Smoking Status: Former smoker tobacco type: smokeless tobacco Exam Narrative Exam Narrative: GENERAL: Alert and oriented x three, piece male in mild distress HEENT: Head normocephalic, atraumatic, EOMI, pupils reactive, face symmetric, moist mucous membranes NECK: Supple, full range of motion CARDIOVASCULAR: Regular rate and rhythm without murmurs, rubs or gallops. Patient has discomfort with palpation of his substernal off side. No rash or skin changes no warmth or erythema. No edema bilateral lower extremities. RESPIRATORY: Breath sounds equal bilaterally, no wheezes rales or rhonchi. No tachypnea accessory muscle use ABDOMEN: Soft, nontender. Normoactive bowel sounds all 4 quadrants. No guarding or rebound, rigidity, no mass : No CVA tenderness EXTREMITIES: Normal range of motion, no clubbing or edema. Neurovascularly intact NEUROLOGICAL: Cranial nerves II through XII grossly intact. Moving all extremities SKIN: Warm, dry, no petechiae, no rashes or lesions. Initial Vital Signs Initial Vital Signs: Vital Signs Temperature 98.5 F 05/04/25 19:40 Pulse Rate 78 05/04/25 19:40 Respiratory Rate 18 05/04/25 19:40 Blood Pressure 130/99 H 05/04/25 19:40 Pulse Oximetry 98 05/04/25 19:40 Oxygen Delivery Method Room Air 05/04/25 19:40 Scores HEART Score Heart Score history: Moderately Suspicious Heart Score EKG: Normal Heart Score Age: < 45 years old Heart Score risk factors: 1-2 risk factors Heart Score troponin: < or = to normal limit Heart Score Total: 2 Course Orders Ordered: ED Orders 05/04/25 23:55 Complete Blood Count AUTO DIFF Stat [facility] Creatine Kinase MB Routine 05/05/25 01:31 EKG-12 Lead Stat 05/05/25 01:54 Trop I [Troponin I] Stat Vital Signs Vital signs: Vital Signs - 8 hr 05/04/25 23:54 05/05/25 00:46 05/05/25 01:04 Pulse Rate 80 79 71 Respiratory Rate 17 21 Blood Pressure 127/80 Pulse Oximetry 97 96 98 Oxygen Delivery Method Room Air Room Air 05/05/25 01:04 05/05/25 01:30 05/05/25 01:30 Pulse Rate 76 Respiratory Rate 11 L Blood Pressure 120/62 117/65 Pulse Oximetry 97 Oxygen Delivery Method Room Air 05/05/25 02:00 05/05/25 02:00 05/05/25 02:30 Pulse Rate 73 Respiratory Rate 15 Blood Pressure 127/71 107/62 Pulse Oximetry 97 Oxygen Delivery Method Room Air 05/05/25 02:30 Pulse Rate 73 Respiratory Rate 14 Blood Pressure Pulse Oximetry 94 Oxygen Delivery Method Room Air Medical Decision Making Lab Data 05/04/25 23:55 05/04/25 21:02 Labs: Lab Results 05/04/25 05/04/25 05/05/25 Range/Units 21:02 23:55 01:54 WBC 6.5 (4.5-11.0) X10^3/uL RBC 4.87 (4.5-5.9) X10^6/uL Hgb 14.7 (13.5-17.5) g/dL Hct 43.3 (41-53) % MCV 88.9 (80-100) fL MCH 30.2 (26-34) PG MCHC 33.9 (30-36) % RDW 13.3 (11.6-14.8) % Plt Count 140 L (150-400) X10^3/uL Neut % (Auto) 49.5 L (50-75) % Lymph % (Auto) 41.1 H (25-40) % Forrest % (Auto) 7.2 (3-14) % Eos % (Auto) 1.7 L (2-4) % Baso % (Auto) 0.5 (0-2) % Neut # (Auto) 3200 (0983-9533) /uL Lymph # (Auto) 2700 (3959-5195) /uL Forrest # (Auto) 500 (0-900) /uL Eos # (Auto) 100 (0-450) /uL Baso # (Auto) 0 (0-100) /uL Sodium 135 L (137-145) mmol/L Potassium 5.2 H D (3.4-5.1) mmol/L Chloride 99 (98-107) mmol/L Carbon Dioxide 27 (22-32) mmol/L BUN 17 (9-20) mg/dL Creatinine 0.76 (0.66-1.25) mg/dL Estimated GFR > 60 (>60) mL/min BUN/Creatinine Ratio 22.4 H (6-22) Glucose 103 H (70-99) mg/dL Calcium 9.6 (8.4-10.2) mg/dL Magnesium 1.8 (1.6-2.3) mg/dL Total Bilirubin 1.3 (0.2-1.3) mg/dL AST 49 (17-59) IU/L ALT 46 (<50) IU/L Alkaline Phosphatase 47 (38-126) U/L Troponin I 0.020 < 0.012 (0.01-0.034) ng/mL NT-Pro-B Natriuret Pep < 20 (<125) pg/mL Total Protein 8.6 H (6.3-8.2) g/dL Albumin 5.2 H (3.5-5.0) g/dL Globulin 3.4 (1.7-4.1) g/dL Albumin/Globulin Ratio 1.5 (1.0-2.8) Lipase 117 (23-300) U/L ECG Data Attestation: I personally reviewed and interpreted this ECG as follows: Prior ECG tracings: available for review Interpretation: Sinus rhythm with sinus arrhythmia rate of 79 SC 172 QRS of 94 QTC of 421, incomplete right bundle-branch block. No acute ST-elevation. Patient has prior from 04/25/2025 appears similar to today. Repeat EKGs sinus rhythm with a rate of 68 SC 160 QRS of 94 QTC of [address]-elevation depression noted. MDM Narrative Medical decision making narrative: Labs show white count of 6.5 hemoglobin of 14 platelets are 140 patient has been thrombocytopenic in the past. Chemistries show potassium 5.2 sodium is 135 creatinine 0.76 with a glucose of 103 LFTs are normal troponin is 0.02 with a BNP of less than 20. Repeat troponin less than 0.012. Chest x-ray shows no acute process. EKG shows sinus rhythm with sinus arrhythmia no acute ST change Heart score is 2. Discussed with the patient, has follow up in the next week with primary care. Discussed return precautions all questions answered. Discharge Plan Departure Patient Disposition: Home Clinical Impression: Chest pain Instructions: DI for Chest Pain Activity Restrictions/Additional Instructions: Follow up for recheck with your physician discuss if you should have stress testing in the future. From your description of symptoms being worse with food I would recommend that you continue to take your Prilosec daily. Please return if you have new or worsening symptoms, new or worsening chest pain, any new shortness of breath, lightheadedness or passing out, persistent vomiting or other new or concerning changes. Prescriptions: No Action metformin 1,000 mg tablet PO clindamycin HCl 300 mg capsule 300 mg PO TID Qty: 30 0RF propranolol 20 mg tablet 20 mg PO BID chlorhexidine gluconate [Peridex] 0.12 % mouthwash 15 ml buccal DAILY Qty: 300 0RF Stand Alone Forms: Patient Portal/API
[2025-05-05 01:30] VITALS: BP 117/65; PULSE 76; RESP 11; O2SAT 97
--- NOTE | 2025-05-05 01:45 | EKG_ITS ---
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
[2025-05-05 02:00] VITALS: BP 127/71; PULSE 73; RESP 15; O2SAT 97
[2025-05-05 02:24] LABS: Troponin I < 0.012 ng/mL (0.01-0.034)
[2025-05-05 02:30] VITALS: BP 107/62; PULSE 73; RESP 14; O2SAT 94
[2025-05-06 07:09] LABS: Labcorp Creatine Kinase MB 1.4 ng/mL (0.0-10.4)
== END 2025-05-05 02:54 | disposition home or self-care (01) ==
PROVIDERS: Emergency Provider Emergency Medicine; Family Provider Nurse Practitioner
DX: R07.9 Chest pain, unspecified (principal); I10 Essential (primary) hypertension
CPT/HCPCS: 36415; 71045; 80053; 82553; 83690; 83735; 83880; 84484; 85025; 93005; 99284

== ENCOUNTER 2025-05-11 19:38 | Emergency (ER) | payer OTHER, SELFPAY ==
[2025-05-11 19:44] VITALS: BP 168/95; PULSE 78; RESP 16; TEMP 36.6; O2SAT 98; BMI 38.7
[2025-05-11 20:21] VITALS: BP 126/89; PULSE 79; O2SAT 97
--- NOTE | 2025-05-11 20:22 | ED.GENADULT ---
HPI - General Adult General Chief complaint: Hypertension Stated complaint: Loud ringing in ears, dizzy, off balance, ongoing Time Seen by Provider: 05/11/25 19:51 Source: patient Mode of arrival: Ambulatory History of Present Illness HPI narrative: 44-year-old male with history of hypertension, anxiety, on STEPHANIE inhibitor and propranolol medications, seen here twice over the last couple of weeks with intermittent left chest discomfort symptoms with negative workup, today was concerned about a spike in his blood pressure, felt anxious, also had upper abdominal discomfort, anterior discomfort, similar to prior events, elevated blood pressure prompted him to seek evaluation here. He took his evening dose of lisinopril a couple hours ago. Took his propranolol dose today. Also reports ringing sensation both ears for the last 3 weeks, no specific diagnosis or treatment recalled. Taking hydroxyzine and BuSpar also for his anxiety. He saw his regular doctor 2 or 3 days ago, did mention the tinnitus ringing ear symptoms, no specific workup or treatment planned, his provider seemed to be aware of the problem. Patient has not seen otolaryngology. Related Data Home Medications ?Medication ?Instructions ?Recorded ?Confirmed propranolol 20 mg tablet 20 mg PO BID 04/15/24 04/15/24 metformin 1,000 mg tablet mg PO 08/13/24 08/13/24 Previous Rx's ?Medication ?Instructions ?Recorded clindamycin HCl 300 mg capsule 300 mg PO TID #30 caps 08/13/24 chlorhexidine gluconate 0.12 % 15 ml buccal DAILY #300 mL 08/19/24 mouthwash (Peridex) Allergies Allergy/AdvReac Type Severity Reaction Status Date / Time No Known Drug Allergies Allergy Verified 05/11/25 19:44 Patient History Medical History (Updated 05/11/25 @ 20:46 by Gordo Jackson MD) Low back pain Rodrigo's deformity tobacco type: smokeless tobacco Exam Narrative Exam Narrative: GENERAL: Well-developed patient, in mild distress. HEAD: Atraumatic. Normocephalic. EYES: Pupils equal round and reactive. Extraocular motions intact. No scleral icterus. No injection or drainage. ENT: Nose without bleeding, purulent drainage. Throat without erythema, tonsillar hypertrophy or exudate. Airway patent. NECK: Trachea midline. Non tender CARDIOVASCULAR: Regular rate and rhythm without murmurs, gallops, or rubs. RESPIRATORY: Clear to auscultation. Breath sounds equal bilaterally. No wheezes, rales, or rhonchi. GASTROINTESTINAL: Abdomen soft, non-tender, nondistended. EXTREMITIES: No edema or joint tenderness. BACK: Nontender without deformity or crepitance. No flank tenderness. NEURO: AOx3. Motor functions grossly nonfocal. SKIN: No rash or erythema of visible areas Initial Vital Signs Initial Vital Signs: Vital Signs Temperature 98 F 05/11/25 19:44 Pulse Rate 78 05/11/25 19:44 Respiratory Rate 16 05/11/25 19:44 Blood Pressure 168/95 H 05/11/25 19:44 Pulse Oximetry 98 05/11/25 19:44 Oxygen Delivery Method Room Air 05/11/25 19:44 Course Vital Signs Vital signs: Vital Signs - 8 hr 05/11/25 19:44 05/11/25 20:21 05/11/25 20:21 Temperature 98 F Pulse Rate 78 79 Respiratory Rate 16 Blood Pressure 168/95 H 126/89 Pulse Oximetry 98 97 Oxygen Delivery Method Room Air 05/11/25 20:30 05/11/25 20:31 05/11/25 20:31 Temperature Pulse Rate 84 79 Respiratory Rate Blood Pressure 137/64 Pulse Oximetry 96 96 Oxygen Delivery Method Room Air Medical Decision Making MDM Narrative Medical decision making narrative: 44-year-old male with history of anxiety, previous visits with negative chest pain workup over the last couple of weeks, having tinnitus symptoms known to PCP without specific plan or workup or treatment, felt anxious, elevated blood pressure, blood pressure improved without specific treatment. We discussed repeat evaluation today that might include chest x-ray, EKG labs. He decided he wanted to forego testing. Feels in better. Discharged home per patient request. Discharge Plan Departure Patient Disposition: Home Clinical Impression: Hypertension, Tinnitus, Chest pain, History of anxiety Activity Restrictions/Additional Instructions: History of anxiety, elevated blood pressure, taking medical regimen of lisinopril and propranolol and Vistaril/hydroxyzine, seen twice over the last couple of weeks here for chest pain related discomfort with negative workups. Tinnitus ringing of the ears for the last 3 weeks, known to your primary care doctor who saw you earlier this week, no specific plan consider otolaryngology consultation but you might require referral by your regular doctor for this. Primarily concerned about elevated blood pressure spike, still having intermittent chest discomfort, concern for possible gas bubble like symptoms in the abdomen. Blood pressure on triage was initially elevated, but improved without specific treatment. Consider anxiety. We discussed workup of chest pain with chest x-ray, EKG, lab work, which was declined. We discussed imaging of your abdomen, also declined. We discussed imaging of the brain, also declined. You felt reassured with some improvement of your blood pressure. For now you were continue your chronic medication regimen and follow up with your regular provider. You declined further workup for now and requested discharged home. Consider close follow up with your regular doctor. Further workup and management of these ongoing problems as an outpatient for now. Return to this/nearest emergency department for any change worsening symptoms or any concerns prior. Prescriptions: No Action metformin 1,000 mg tablet PO clindamycin HCl 300 mg capsule 300 mg PO TID Qty: 30 0RF propranolol 20 mg tablet 20 mg PO BID chlorhexidine gluconate [Peridex] 0.12 % mouthwash 15 ml buccal DAILY Qty: 300 0RF Stand Alone Forms: Patient Portal/API
[2025-05-11 20:30] VITALS: PULSE 84; O2SAT 96
[2025-05-11 20:31] VITALS: BP 137/64; PULSE 79; O2SAT 96
--- NOTE | 2025-05-11 20:31 | PC.NURSE ---
Pt recently stopped taking cold turkey his methadone 80 mg daily about 1 month ago. All symptoms he is currently having started about a week after stopping his methadone. Patient started to take his other BP medications (lisinopril about 3 days ago). Symptoms: abdominal upset, headache, ear pressure pain.
== END 2025-05-11 21:01 | disposition home or self-care (01) ==
PROVIDERS: Emergency Provider Emergency Medicine; Family Provider Nurse Practitioner
DX: I10 Essential (primary) hypertension (principal); H93.13 Tinnitus, bilateral; R07.9 Chest pain, unspecified; R10.10 Upper abdominal pain, unspecified; F41.9 Anxiety disorder, unspecified
CPT/HCPCS: 99281